=== PATIENT | male | born 1935 | race Caucasian/White ===

== ENCOUNTER → 2016-11-02 | Outpatient (CLI) | payer MEDICARE, OTHER ==
[2016-11-02 16:31] LABS: ABSOLUTE EOSINOPHILS # (AUTO) 0.2 10^3/uL (0.0-0.6); ABSOLUTE LYMPHOCYTES (AUTO) 1.8 10^3/uL (0.5-4.7); ABSOLUTE MONOCYTES (AUTO) 0.5 10^3/uL (0.1-1.4); ABSOLUTE NEUT (AUTO) 4.6 10^3/uL (1.7-8.2); BASOPHILS % (AUTO) 0.6 % (0-2); EOSINOPHILS % (AUTO) 2.5 % (0-6); HEMATOCRIT 43.1 % (37.9-51.0); HEMOGLOBIN 14.6 g/dL (13.5-17.0); HGB HCT DIFFERENCE 0.7; LYMPHOCYTES % (AUTO) 25.3 % (13-45); MEAN CORPUSCULAR HEMOGLOBIN 29.4 pg (27.0-33.4); MEAN CORPUSCULAR HGB CONC 33.7 g/dL (32.0-36.0); MEAN CORPUSCULAR VOLUME 87 fl (80-97); MONOCYTES % (AUTO) 7.4 % (3-13); RED BLOOD COUNT 4.95 10^6/uL (4.35-5.55); RED CELL DISTRIBUTION WIDTH 13.3 % (11.5-14.0); SEGMENTED NEUTROPHILS % (AUTO) 64.2 % (42-78); WHITE BLOOD COUNT 7.2 10^3/uL (4.0-10.5)
[2016-11-02 16:52] LABS: ANION GAP 11 (5-19); BLOOD UREA NITROGEN 28 mg/dL (7-20); CALCIUM 9.8 mg/dL (8.4-10.2); CARBON DIOXIDE 32 mmol/L (22-30); CHLORIDE 98 mmol/L (98-107); CREATININE RESULT 0.84 mg/dL (0.52-1.25); GLUCOSE 99 mg/dL (75-110); POTASSIUM 4.6 mmol/L (3.6-5.0)
--- NOTE | 2016-11-03 11:24 | EKG REPORT ---
SEVERITY:- ABNORMAL ECG - SINUS RHYTHM VENTRICULAR PREMATURE COMPLEX PROBABLE LVH WITH SECONDARY REPOL ABNRM NONSPECIFIC T CHANGES V2-V3 : Confirmed by: Marilyn Martino 03-Nov-2016 11:23:50
== END ==
LOC: OD 15:15
PROVIDERS: ATTEND Orthopaedic Surgery
DX: Z01.810 Encounter for preprocedural cardiovascular examination (principal); Z01.818 Encounter for other preprocedural examination
CPT/HCPCS: 36415; 80048; 85025; 93005; 93010

== ENCOUNTER 2016-11-18 13:13 | Day surgery (SDC) | payer MEDICARE, OTHER ==
[~2016-11-18 13:13] MED LIST: CEFAZOLIN 2 GM/D5W RTU 2 GM/50 ML RTUPB IV ONE; CEFAZOLIN SODIUM 1 GM in DEXTROSE 5%-WATER 50 ML IV PRN; LIDOCAINE 2% INJ-PF (20 MG/ML) 10 ML AMPUL ONE; ONDANSETRON HCL INJ/PF 4 MG/2 ML SDV ONE
[2016-11-18] MEDS ORDERED: BUPIVACAINE HCL 0.5 % INJ/PF 30 ML SDV ONE (13:21)
[2016-11-18] MEDS ORDERED: LIDOCAINE 1% INJ-PF (10 MG/ML) 30 ML SDV ONE (13:21)
[2016-11-18] MEDS ORDERED: MORPHINE SULFATE 10 MG/ML INJ ONE (14:43)
[2016-11-18] MEDS ORDERED: FENTANYL CITRATE INJ/PF 100 MCG/2 ML AMPUL ONE (15:03)
[2016-11-18] MEDS ORDERED: MIDAZOLAM 2 MG/2 ML INJ ONE (15:03)
[2016-11-18] MEDS ORDERED: PROPOFOL INJ 200 MG/20 ML VIAL IV ONE (15:04)
[2016-11-18] MEDS ORDERED: DEXMEDETOMIDINE INJ 80 MCG/20 ML VIAL IV ONE (15:04)
[2016-11-18] MEDS ORDERED: MEPERIDINE HCL/PF INJ 25 MG/1 ML DISP.SYRIN IV PRN (16:22)
[2016-11-18] MEDS ORDERED: DIPHENHYDRAMINE HCL 50 MG/ML VIAL IV PRN (16:22)
[2016-11-18] MEDS ORDERED: PROMETHAZINE HCL INJ 25 MG/1 ML VIAL IV PRN ×2 (16:22)
[2016-11-18] MEDS ORDERED: MORPHINE SULFATE 10 MG/ML INJ IV PRN ×2 (16:22→17:21)
[2016-11-18] MEDS ORDERED: FENTANYL CITRATE INJ/PF 100 MCG/2 ML AMPUL IV PRN ×3 (16:22)
[2016-11-18] MEDS ORDERED: OXYCODONE-ACETAMINOPHEN 5-325 MG TABLET PO PRN ×2 (16:22)
[2016-11-18] MEDS ORDERED: ONDANSETRON HCL INJ/PF 4 MG/2 ML SDV IV PRN (17:21)
[2016-11-18] MEDS ORDERED: HYDROCODONE/ACETAMINOPHEN 5-325 MG TABLET PO PRN (17:21)
--- NOTE | 2016-11-18 17:21 | Operative Report ---
Operative Report DATE OF SURGERY: 11/18/16 PREOPERATIVE DIAGNOSIS: Persistent Carpal Tunnel Syndrome Right Left Wrist POSTOPERATIVE DIAGNOSIS: Same OPERATION: Revision Left Carpal Tunnel Release w/ Placement of Nerve Conduit Protector SURGEON: MELA BALLARD ANESTHESIA: LMAC COMPLICATIONS: None ESTIMATED BLOOD LOSS: <25cc PROCEDURE: Indication for above procedure: 81-year-old male with long-standing history of bilateral carpal tunnel syndrome. He underwent right carpal tunnel release in the past and did well. He then underwent endoscopic left carpal tunnel release on 11/16/16 patient had considerable postoperative discomfort with paresthesias on the median innervated digits. At that point because the patient's significant discomfort we discussed treatment options including operative versus nonoperative intervention. The joint decision was made to proceed with operative exploration. Procedure In Detail: Patient was seen and evaluated in the preoperative holding area. The LEFT upper extremity was initialized and marked. Patient received 2 g Ancef IV for bacterial prophylaxis. Patient was taken back to the operative room where transferred operative table. Patient was then placed under MAC anesthesia. Once adequately anesthetized, a nonsterile tourniquet was placed on the upper extremity. A surgical team debriefing was performed ensuring all instrumentation was available, the surgical procedure was discussed with possible concerns reviewed. Skin was prepped with alcohol a 50:50 10 mL mixture of 1% lidocaine and 0.5% Marcaine plain was injected locally and w/in carpal canal. The upper extremity was prepped with chlorhexidine and alcohol and draped in a sterile fashion. A timeout was done identifying correct patient, procedure and extremity everyone in attendance agree with this and verbalized no concerns.The extremity was then exsanguinated the tourniquet was inflated to 250 mmHg. Patient's previous skin incision was opened and extended proximally and distally with a Barbra extensions and then in line with the radial border of the middle finger from the proximal wrist crease to the distal flexion crease. Blunt dissection was performed proximally identifying the median nerve at its normal-appearing point. It was then followed in a distal direction carefully identifying the palmar cutaneous branch. At the level of the proximal wrist crease palmar fascia was encountered and incised in line with the radial border of the ring finger. The transverse carpal ligament was then identified. There was a distal portion incompletely released causing constriction of the nerve. The nerve remained in continuity a neurolysis was performed. Each branch distally was identified in continuity including the first second and third webspace along with the recurrent motor branch. The nerve was released distally to the level of the superficial palmar arch. The wound was then irrigated with normal saline. Because of the risk of recurrence a Axogen 10 mm nerve protector was placed around the contused portion of the nerve and secured with 7-0 nylon horizontal mattress sutures. The tourniquet was then deflated and compression was placed for 2 minutes. Once compression was released and peripheral vasculature was coagulated with bipolar cautery until the wound was dry. The subcutaneous tissues were closed with interrupted 4-0 Monocryl suture. The proximal wound was closed with interrupted 3-0 nylon suture. The palm incision was closed with a running horizontal mattress 3-0 nylon suture. Wound was then dressed with Xeroform 4 x 4's and a loosely applied volar resting splint. Sponge counts, instrument counts, needle counts counts were correct. Patient was then awoken from anesthesia. Transferred from the operating room table to the operating room stretcher. There was no intraoperative complications patient tolerated procedure well stable to PACU. Postoperative plan: Patient will follow-up in the office as scheduled postoperatively. He will begin digit range of motion.
--- NOTE | 2016-11-18 17:23 | PDOC DISCHARGE SUMMARY ---
Discharge Summary (SDC) - Discharge Final Diagnosis: Persistent Left Carpal Tunnel Syndrome Date of Surgery: 11/18/16 Discharge Date: 11/18/16 Condition: Good Treatment or Instructions: Schedule Follow Up w/ Dr. Quentin Power @ [facility] to be seen in 10-14 days or as scheduled [place]: [place]: [place]: Keep splint clean/dry/intact. Ice and elevate May begin finger range of motion attempting to make full fist. Stool softener of choice when on pain medication. Prescriptions: Hydrocodone/Acetaminophen [[place] 7.5-325 mg Tablet] 1 tab PO Q4 PRN #50 tablet PRN Reason:
[2016-11-18 19:24] VITALS: BP 137/70
== END 2016-11-18 19:20 | disposition home or self-care (01) ==
LOC: OROUT 13:13
PROVIDERS: ATTEND Orthopaedic Surgery
PROC: 01U507Z Supplement Median Nerve with Autologous Tissue Substitute, Open Approach (ICD-10-PCS; principal; 2016-11-18 16:00)
DX: G56.02 Carpal tunnel syndrome, left upper limb (principal); I73.9 Peripheral vascular disease, unspecified; E11.9 Type 2 diabetes mellitus without complications; E78.5 Hyperlipidemia, unspecified; I10 Essential (primary) hypertension; Z79.82 Long term (current) use of aspirin; Z79.899 Other long term (current) drug therapy; Z79.84 Long term (current) use of oral hypoglycemic drugs
CPT/HCPCS: 36415; 84132; 64910; J2250; J3490 ×3; J2270; J2405; J2704; J0690; 1810; J3010

== ENCOUNTER → 2017-01-06 | Outpatient (CLI) | payer MEDICARE, OTHER ==
[2017-01-07 10:29] LABS: ANION GAP 10 (5-19); BLOOD UREA NITROGEN 25 mg/dL (7-20); CALCIUM 10.2 mg/dL (8.4-10.2); CARBON DIOXIDE 35 mmol/L (22-30); CHLORIDE 98 mmol/L (98-107); CREATININE RESULT 0.85 mg/dL (0.52-1.25); Direct HDL 84 mg/dL (>40); GLUCOSE 125 mg/dL (75-110); POTASSIUM 4.5 mmol/L (3.6-5.0); SODIUM 143.1 mmol/L (137-145); TRIGLYCERIDES 143 mg/dL (<150)
[2017-01-07 10:40] LABS: DIRECT LDL 55 mg/dL (<100)
== END ==
LOC: OD 10:29
PROVIDERS: ATTEND Internal Medicine Cardiovascular Disease
DX: E78.2 Mixed hyperlipidemia (principal); Z79.899 Other long term (current) drug therapy
CPT/HCPCS: 36415; 80048; 80061; 82977

== ENCOUNTER → 2017-05-31 | Outpatient (CLI) | payer MEDICARE, OTHER ==
[2017-05-31 12:09] LABS: ANION GAP 13 (5-19); BLOOD UREA NITROGEN 16 mg/dL (7-20); CARBON DIOXIDE 32 mmol/L (22-30); CHLORIDE 97 mmol/L (98-107); CHOLESTEROL 192.66 mg/dL (0-200); CREATININE RESULT 0.81 mg/dL (0.52-1.25); Direct HDL 77 mg/dL (>40); GLUCOSE 101 mg/dL (75-110); MAGNESIUM 1.8 mg/dL (1.6-2.3); POTASSIUM 4.3 mmol/L (3.6-5.0); SODIUM 141.5 mmol/L (137-145); TRIGLYCERIDES 202 mg/dL (<150)
[2017-05-31 12:20] LABS: DIRECT LDL 68 mg/dL (<100)
[2017-05-31 12:23] LABS: VLDL CHOLESTEROL 40.4 mg/dL (10-31)
== END ==
LOC: OD 09:46
PROVIDERS: ATTEND Internal Medicine Cardiovascular Disease
DX: I25.10 Atherosclerotic heart disease of native coronary artery without angina pectoris (principal); R06.02 Shortness of breath; Z79.899 Other long term (current) drug therapy; E78.2 Mixed hyperlipidemia
CPT/HCPCS: 36415; 80048; 80061; 82977; 83735; 83880

== ENCOUNTER → 2017-06-07 | Outpatient (CLI) | payer MEDICARE, OTHER ==
[2017-06-07 14:11] LABS: ABSOLUTE BASOPHILS # (AUTO) 0.1 10^3/uL (0.0-0.2); ABSOLUTE EOSINOPHILS # (AUTO) 0.2 10^3/uL (0.0-0.6); ABSOLUTE LYMPHOCYTES (AUTO) 1.6 10^3/uL (0.5-4.7); ABSOLUTE MONOCYTES (AUTO) 0.5 10^3/uL (0.1-1.4); ABSOLUTE NEUT (AUTO) 5.9 10^3/uL (1.7-8.2); BASOPHILS % (AUTO) 0.6 % (0-2); EOSINOPHILS % (AUTO) 2.7 % (0-6); HEMATOCRIT 42.2 % (37.9-51.0); HEMOGLOBIN 14.4 g/dL (13.5-17.0); LYMPHOCYTES % (AUTO) 19.5 % (13-45); MEAN CORPUSCULAR HEMOGLOBIN 30.6 pg (27.0-33.4); MEAN CORPUSCULAR VOLUME 90 fl (80-97); MONOCYTES % (AUTO) 6.4 % (3-13); RED CELL DISTRIBUTION WIDTH 13.8 % (11.5-14.0); SEGMENTED NEUTROPHILS % (AUTO) 70.8 % (42-78); WHITE BLOOD COUNT 8.3 10^3/uL (4.0-10.5)
== END ==
LOC: OD 13:32
PROVIDERS: ATTEND Specialist
DX: R10.9 Unspecified abdominal pain (principal); K62.5 Hemorrhage of anus and rectum
CPT/HCPCS: 36415; 85025

== ENCOUNTER 2017-06-22 09:00 | Day surgery (SDC) | payer MEDICARE, OTHER ==
--- NOTE | 2017-06-16 12:30 | HISTORY AND PHYSICAL E ---
History and Physical NAME: MADELINE FISH : 1935 AGE: 81Y ADMITTED: 06/22/2017 ROOM: CHIEF COMPLAINT: Rectal bleeding. HISTORY OF PRESENT ILLNESS: The patient referred to us by Dr. Sandy for colon exam. He has remote history of colonoscopy. Followed 2003. SOCIAL HISTORY: He does not smoke and drinks occasional beer. MEDICATIONS: 1. Plavix. 2. Simvastatin. 3. Toprol. 4. Diltiazem. 5. Trilipix. 6. Aspirin. PAST MEDICAL HISTORY: The patient did have colon exam 2003. He has coronary artery disease, cardiac bypass and stent. Hemorrhoid surgery. Cholecystectomy. Right shoulder surgery. PHYSICAL EXAMINATION: VITAL SIGNS: Blood pressure 120/70, pulse 80, respirations 20, temperature is 98. HEAD, EYES, EARS, NOSE AND THROAT: Normal. ABDOMEN: Soft. NEUROLOGIC EXAM: Negative. CONCLUSION: Rectal bleeding. PLAN: Colonoscopy, 06/22/2017. DICTATING PHYSICIAN: JEN RAND M.D. [id number] Y#: [id number] ID: [id number] JOB#: [id number] ACCT: [id number] cc:JEN RAND M.D., LAZARO >
[~2017-06-22 09:00] MED LIST changes: -CEFAZOLIN 2 GM/D5W RTU 2 GM/50 ML RTUPB IV ONE; -CEFAZOLIN SODIUM 1 GM in DEXTROSE 5%-WATER 50 ML IV PRN; +EPINEPHRINE INJ 1 MG/10 ML DISP.SYRIN ONE; +FENTANYL CITRATE INJ/PF 100 MCG/2 ML AMPUL ONE; +FLUMAZENIL INJ 0.5 MG/5 ML VIAL ONE; +GLUCAGON,HUMAN RECOMB 1 MG INJ ONE; +GLYCOPYRROLATE INJ 0.4 MG/2 ML VIAL ONE; -LIDOCAINE 2% INJ-PF (20 MG/ML) 10 ML AMPUL ONE; +LIDOCAINE 2% JELLY 30 ML TUBE ONE; +NALOXONE HCL INJ/PF 0.4 MG/1 ML SDV ONE
[2017-06-22] MEDS: MIDAZOLAM 2 MG/2 ML INJ ONE ×2 (10:48→10:53)
[2017-06-22 11:54] VITALS: BP 131/70
[2017-06-22 11:58] LABS: ABSOLUTE EOSINOPHILS # (AUTO) 0.1 10^3/uL (0.0-0.6); ABSOLUTE LYMPHOCYTES (AUTO) 1.5 10^3/uL (0.5-4.7); ABSOLUTE MONOCYTES (AUTO) 0.4 10^3/uL (0.1-1.4); ABSOLUTE NEUT (AUTO) 4.3 10^3/uL (1.7-8.2); BASOPHILS % (AUTO) 0.6 % (0-2); EOSINOPHILS % (AUTO) 1.3 % (0-6); HEMATOCRIT 42.5 % (37.9-51.0); HEMOGLOBIN 14.8 g/dL (13.5-17.0); HGB HCT DIFFERENCE 1.9; LYMPHOCYTES % (AUTO) 24.2 % (13-45); MEAN CORPUSCULAR HEMOGLOBIN 30.7 pg (27.0-33.4); MEAN CORPUSCULAR HGB CONC 34.8 g/dL (32.0-36.0); MEAN CORPUSCULAR VOLUME 88 fl (80-97); MONOCYTES % (AUTO) 7.1 % (3-13); RED BLOOD COUNT 4.82 10^6/uL (4.35-5.55); RED CELL DISTRIBUTION WIDTH 13.9 % (11.5-14.0); SEGMENTED NEUTROPHILS % (AUTO) 66.8 % (42-78); WHITE BLOOD COUNT 6.4 10^3/uL (4.0-10.5)
[2017-06-22 12:17] LABS: ALANINE AMINOTRANSFERASE 44 U/L (21-72); ALBUMIN 4.1 g/dL (3.5-5.0); ALKALINE PHOSPHATASE 58 U/L (38-126); ANION GAP 10 (5-19); ASPARTATE AMINO TRANSFERASE 37 U/L (17-59); BILIRUBIN,DIRECT 0.4 mg/dL (0.0-0.4); BILIRUBIN,TOTAL 1.1 mg/dL (0.2-1.3); BLOOD UREA NITROGEN 19 mg/dL (7-20); CALCIUM 9.5 mg/dL (8.4-10.2); CARBON DIOXIDE 32 mmol/L (22-30); CHLORIDE 95 mmol/L (98-107); CREATININE RESULT 0.81 mg/dL (0.52-1.25); GLUCOSE 178 mg/dL (75-110); POTASSIUM 3.6 mmol/L (3.6-5.0); SODIUM 136.7 mmol/L (137-145); TOTAL PROTEIN 6.6 g/dL (6.3-8.2)
[2017-06-22 12:48] LABS: CARCINOEMBRYONIC ANTIGEN 3.8 ng/mL (<3.0)
--- NOTE | 2017-06-23 12:00 | DISCHARGE SUMMARY E ---
Discharge Summary NAME: MADELINE FISH : 1935 AGE: 81Y ADMITTED: 06/22/2017 DISCHARGED: 06/22/2017 HISTORY: The patient is an 81-year-old male who presented with rectal bleeding. Today's colonoscopy shows sessile polyp, cecum. The patient has a bypass and stent. He did have a history of hemorrhoid surgery, cholecystectomy, and right shoulder surgery. DISCHARGE PLAN: 1. Soft diet. 2. Awaiting biopsy results. 3. CEA, CBC, chem profile. 4. Consideration for referral to tertiary center, [facility] or [facility], regarding sessile polyp in the cecum. DICTATING PHYSICIAN: JEN RAND M.D. [id number] PHY#: [id number] ID: [id number] JOB#: [id number] ACCT: [id number] cc:TARAS CONCEPCION M.D., MAHMOUD M.D. >
--- NOTE | 2017-06-23 12:03 | OPERATIVE REPORT E ---
Operative Report NAME: MADELINE FISH : 1935 AGE: 81Y DATE OF SURGERY: 06/22/2017 ROOM: PREOPERATIVE DIAGNOSIS: Rectal bleeding. POSTOPERATIVE DIAGNOSES: 1. External hemorrhoids. 2. Sessile polyp in the cecum, 2 to 3 cm wide, 4 mm width, and 2 to 3 cm long, sessile polyp in the ileocecal valve area. OPERATION: Colonoscopy. SURGEON: JEN RAND M.D. ANESTHESIA: Versed 3 mg and Fentanyl 50 mcg. PROCEDURE: Rectal exam - External hemorrhoids. Sigmoid and descending colon diminutive polyps, small to biopsy. Descending colon normal. Transverse colon normal. Ascending colon normal. Cecum shows sessile polyp in the ileocecal valve area, 3 cm long, 4 mm wide, difficult and risky to resect it by the scope. The scope was withdrawn from the cecum as mentioned. Sessile polyp. Ascending normal. Transverse colon normal. Descending colon diminutive polyps. External hemorrhoids. PLAN: 1. Awaiting biopsy. We will refer the patient to a tertiary center for further evaluation for sessile polyp in the cecum most likely adenoma, pending biopsy. 2. Baseline CBC and CEA. 3. Soft diet today. 4. Hold aspirin for 3 days. DICTATING PHYSICIAN: JEN RAND M.D. [id number] Y#: [id number] ID: [id number] JOB#: [id number] ACCT: [id number] cc:TARAS CONCEPCION M.D., MAHMOUD M.D. >
== END 2017-06-22 12:18 | disposition home or self-care (01) ==
LOC: END 09:00
PROVIDERS: ATTEND Specialist
PROC: 0DBH8ZX Excision of Cecum, Via Natural or Artificial Opening Endoscopic, Diagnostic (ICD-10-PCS; principal; 2017-06-22 10:00)
DX: D12.0 Benign neoplasm of cecum (principal); K64.4 Residual hemorrhoidal skin tags; K62.5 Hemorrhage of anus and rectum; R97.0 Elevated carcinoembryonic antigen [CEA]; I25.10 Atherosclerotic heart disease of native coronary artery without angina pectoris; Z79.02 Long term (current) use of antithrombotics/antiplatelets; Z79.82 Long term (current) use of aspirin; Z79.899 Other long term (current) drug therapy
CPT/HCPCS: 45380; 36415; 82962; 82378; 85025; 80053; 88305 ×2; J2250; J3010; J0171; J1610; J2310; J2405; J3490

== ENCOUNTER → 2017-09-21 | Outpatient (CLI) | payer MEDICARE, OTHER ==
[2017-09-21 12:14] LABS: ABSOLUTE BASOPHILS # (AUTO) 0.1 10^3/uL (0.0-0.2); ABSOLUTE EOSINOPHILS # (AUTO) 0.2 10^3/uL (0.0-0.6); ABSOLUTE LYMPHOCYTES (AUTO) 1.8 10^3/uL (0.5-4.7); ABSOLUTE MONOCYTES (AUTO) 0.7 10^3/uL (0.1-1.4); ABSOLUTE NEUT (AUTO) 5.5 10^3/uL (1.7-8.2); BASOPHILS % (AUTO) 0.6 % (0-2); EOSINOPHILS % (AUTO) 1.9 % (0-6); HEMATOCRIT 42.5 % (37.9-51.0); HEMOGLOBIN 14.8 g/dL (13.5-17.0); HGB HCT DIFFERENCE 1.9; LYMPHOCYTES % (AUTO) 22.3 % (13-45); MEAN CORPUSCULAR HEMOGLOBIN 30.8 pg (27.0-33.4); MEAN CORPUSCULAR HGB CONC 34.8 g/dL (32.0-36.0); MEAN CORPUSCULAR VOLUME 89 fl (80-97); MONOCYTES % (AUTO) 8.2 % (3-13); RED CELL DISTRIBUTION WIDTH 13.5 % (11.5-14.0); WHITE BLOOD COUNT 8.3 10^3/uL (4.0-10.5)
[2017-09-21 12:56] LABS: ERYTHROCYTE SEDIMENTATION RATE 16 mm/hr (0-20)
== END ==
LOC: OD 11:37
PROVIDERS: ATTEND Orthopaedic Surgery
DX: M25.50 Pain in unspecified joint (principal)
CPT/HCPCS: 36415; 85025; 85652; 86140

== ENCOUNTER → 2017-10-24 | Outpatient (CLI) | payer MEDICARE, OTHER ==
[2017-10-24 19:01] LABS: HEMATOCRIT 43.3 % (37.9-51.0); MEAN CORPUSCULAR HEMOGLOBIN 29.8 pg (27.0-33.4); MEAN CORPUSCULAR HGB CONC 34.7 g/dL (32.0-36.0); MEAN CORPUSCULAR VOLUME 86 fl (80-97); PLATELET COUNT 188 10^3/uL (150-450); RED BLOOD COUNT 5.05 10^6/uL (4.35-5.55); RED CELL DISTRIBUTION WIDTH 12.8 % (11.5-14.0); WHITE BLOOD COUNT 7.8 10^3/uL (4.0-10.5)
[2017-10-24 19:04] LABS: INTERNATIONAL RATION (INR) 0.88; PROTHROMBIN TIME 12.6 SEC (11.4-15.4)
[2017-10-24 19:05] LABS: PARTIAL THROMBOPLASTIN TIME 31.3 SEC (23.5-35.8)
[2017-10-24 19:26] LABS: ANION GAP 10 (5-19); BLOOD UREA NITROGEN 20 mg/dL (7-20); CALCIUM 10.1 mg/dL (8.4-10.2); CARBON DIOXIDE 31 mmol/L (22-30); CHLORIDE 101 mmol/L (98-107); GLUCOSE 87 mg/dL (75-110); SODIUM 141.9 mmol/L (137-145)
== END ==
LOC: OD 17:52
PROVIDERS: ATTEND Internal Medicine Cardiovascular Disease
DX: Z01.810 Encounter for preprocedural cardiovascular examination (principal); R07.9 Chest pain, unspecified; Z79.01 Long term (current) use of anticoagulants; R07.89 Other chest pain
CPT/HCPCS: 36415; 80048; 85027; 85610; 85730

== ENCOUNTER → 2017-10-30 | Outpatient (CLI) | payer MEDICARE, OTHER ==
--- NOTE | 2017-10-30 10:50 | WOMENS IMAGING REPORT ---
EXAM DESCRIPTION: BONE DENSITY HIP/SPINE COMPLETED DATE/TIME: 10/30/2017 9:21 am REASON FOR STUDY: STRESS FRACTURE; M84.30XA M84.30XA STRESS FRACTURE, UNSPECIFIED SITE, INIT ENCNTR FOR M81.0 AGE-RELATED OSTEOPOROSIS W/O CURRENT PATHOLOGICAL FRAC COMPARISON: None. TECHNIQUE: Dual-Energy X-ray Absorptiometry (DEXA) of the AP Spine and Hip. LIMITATIONS: None. FINDINGS: LUMBAR SPINE: The bone mineral density (BMD) measured from L1-L4 in the AP projection correlates with a T-score of 1.5, which is normal as defined by the World Health Organization. HIP: The bone mineral density (BMD) measured in the left hip correlates with a T-score of 0.3, which is no rmal as defined by the World Health Organization. IMPRESSION: 1. LUMBAR SPINE: NORMAL. 2. HIP: NORMAL. COMMENT: The World Health Organization defines low BMD as follows: T-score: Normal: Greater than -1.0 Osteopenia: Between -1.0 and -2.5 Osteoporosis: Less than -2.5 without fractures Established osteoporosis: Less than -2.5 with fractures In general, you may wish to consider: Diagnosis Treatment Follow-up DEXA Normal BMD Prevention 2-3 years Osteopenia Prevention/Therapy 1-2 years Osteoporosis Therapy Yearly TECHNICAL DOCUMENTATION: JOB ID: [id number]- All Rights Reserved
== END ==
LOC: WI 09:07
PROVIDERS: ATTEND Physician Assistant Surgical
DX: M84.30XA Stress fracture, unspecified site, initial encounter for fracture (principal); M81.0 Age-related osteoporosis without current pathological fracture
CPT/HCPCS: 77080

== ENCOUNTER → 2017-10-30 | Outpatient (CLI) | payer MEDICARE, OTHER ==
[2017-10-30 10:49] LABS: ABSOLUTE BASOPHILS # (AUTO) 0.1 10^3/uL (0.0-0.2); ABSOLUTE EOSINOPHILS # (AUTO) 0.2 10^3/uL (0.0-0.6); ABSOLUTE LYMPHOCYTES (AUTO) 1.9 10^3/uL (0.5-4.7); ABSOLUTE MONOCYTES (AUTO) 0.5 10^3/uL (0.1-1.4); ABSOLUTE NEUT (AUTO) 5.5 10^3/uL (1.7-8.2); BASOPHILS % (AUTO) 0.7 % (0-2); EOSINOPHILS % (AUTO) 1.9 % (0-6); HEMATOCRIT 43.3 % (37.9-51.0); HEMOGLOBIN 14.8 g/dL (13.5-17.0); LYMPHOCYTES % (AUTO) 23.1 % (13-45); MEAN CORPUSCULAR HEMOGLOBIN 29.4 pg (27.0-33.4); MEAN CORPUSCULAR HGB CONC 34.2 g/dL (32.0-36.0); MEAN CORPUSCULAR VOLUME 86 fl (80-97); MONOCYTES % (AUTO) 6.5 % (3-13); PLATELET COUNT 157 10^3/uL (150-450); RED BLOOD COUNT 5.04 10^6/uL (4.35-5.55); RED CELL DISTRIBUTION WIDTH 13.2 % (11.5-14.0); SEGMENTED NEUTROPHILS % (AUTO) 67.8 % (42-78); TOTAL CELLS COUNTED % (AUTO) 100 %
[2017-10-30 11:07] LABS: ALANINE AMINOTRANSFERASE 35 U/L (21-72); ALBUMIN 4.7 g/dL (3.5-5.0); ALKALINE PHOSPHATASE 123 U/L (38-126); ANION GAP 8 (5-19); ASPARTATE AMINO TRANSFERASE 32 U/L (17-59); BILIRUBIN,DIRECT 0.3 mg/dL (0.0-0.4); BILIRUBIN,TOTAL 0.6 mg/dL (0.2-1.3); BLOOD UREA NITROGEN 18 mg/dL (7-20); CALCIUM 10.4 mg/dL (8.4-10.2); CARBON DIOXIDE 34 mmol/L (22-30); CHLORIDE 100 mmol/L (98-107); CHOLESTEROL 137.27 mg/dL (0-200); GLUCOSE 98 mg/dL (75-110); POTASSIUM 4.5 mmol/L (3.6-5.0); SODIUM 142.4 mmol/L (137-145); TOTAL PROTEIN 7.2 g/dL (6.3-8.2); TRIGLYCERIDES 234 mg/dL (<150)
[2017-10-30 11:13] LABS: ALANINE AMINOTRANSFERASE 33 U/L (21-72); ALBUMIN 4.7 g/dL (3.5-5.0); ALKALINE PHOSPHATASE 129 U/L (38-126); ANION GAP 10 (5-19); ASPARTATE AMINO TRANSFERASE 32 U/L (17-59); BILIRUBIN,DIRECT 0.3 mg/dL (0.0-0.4); BILIRUBIN,TOTAL 0.6 mg/dL (0.2-1.3); BLOOD UREA NITROGEN 18 mg/dL (7-20); CALCIUM 10.2 mg/dL (8.4-10.2); CARBON DIOXIDE 34 mmol/L (22-30); CHLORIDE 99 mmol/L (98-107); GLUCOSE 97 mg/dL (75-110); POTASSIUM 4.1 mmol/L (3.6-5.0); SODIUM 142.9 mmol/L (137-145); TOTAL PROTEIN 7.3 g/dL (6.3-8.2)
[2017-10-30 11:18] LABS: DIRECT LDL 43 mg/dL (<100)
[2017-10-30 11:20] LABS: VLDL CHOLESTEROL 46.8 mg/dL (10-31)
== END ==
LOC: OD 10:12
PROVIDERS: ATTEND Physician Assistant Surgical
DX: E78.2 Mixed hyperlipidemia (principal); I10 Essential (primary) hypertension; I48.92 Unspecified atrial flutter; Z79.899 Other long term (current) drug therapy; M84.30XA Stress fracture, unspecified site, initial encounter for fracture
CPT/HCPCS: 36415; 80048; 80053; 80061; 80076; 82308; 83970; 85025

== ENCOUNTER → 2018-07-17 | Outpatient (CLI) | payer MEDICARE, OTHER ==
[2018-07-17 10:40] LABS: HEMATOCRIT 42.4 % (37.9-51.0); HEMOGLOBIN 15.1 g/dL (13.5-17.0); MEAN CORPUSCULAR HEMOGLOBIN 30.4 pg (27.0-33.4); MEAN CORPUSCULAR HGB CONC 35.6 g/dL (32.0-36.0); MEAN CORPUSCULAR VOLUME 86 fl (80-97); PLATELET COUNT 155 10^3/uL (150-450); RED BLOOD COUNT 4.95 10^6/uL (4.35-5.55); RED CELL DISTRIBUTION WIDTH 13.9 % (11.5-14.0); WHITE BLOOD COUNT 7.6 10^3/uL (4.0-10.5)
[2018-07-17 10:49] LABS: APPEARANCE,URINE CLEAR; BILIRUBIN,URINE NEGATIVE (NEGATIVE); COLOR,URINE YELLOW; GLUCOSE, URINE 50 mg/dL (NEGATIVE); KETONES,URINE NEGATIVE (NEGATIVE); LEUKOCYTE ESTERASE,URINE NEGATIVE (NEGATIVE); NITRITE,URINE NEGATIVE (NEGATIVE); PROTEIN,URINE NEGATIVE (NEGATIVE); URINE SPECIFIC GRAVITY 1.023
[2018-07-17 10:51] LABS: INTERNATIONAL RATION (INR) 1.26; PROTHROMBIN TIME 16.4 SEC (11.4-15.4)
[2018-07-17 11:04] LABS: ALANINE AMINOTRANSFERASE 30 U/L (21-72); ALBUMIN 4.6 g/dL (3.5-5.0); ALKALINE PHOSPHATASE 61 U/L (38-126); ANION GAP 13 (5-19); ASPARTATE AMINO TRANSFERASE 34 U/L (17-59); BILIRUBIN,DIRECT 0.5 mg/dL (0.0-0.4); BILIRUBIN,TOTAL 1.2 mg/dL (0.2-1.3); BLOOD UREA NITROGEN 26 mg/dL (7-20); CALCIUM 9.7 mg/dL (8.4-10.2); CARBON DIOXIDE 35 mmol/L (22-30); CHLORIDE 96 mmol/L (98-107); CHOLESTEROL 140.74 mg/dL (0-200); GLUCOSE 130 mg/dL (75-110); POTASSIUM 4.1 mmol/L (3.6-5.0); SODIUM 143.8 mmol/L (137-145); TOTAL PROTEIN 7.7 g/dL (6.3-8.2); TRIGLYCERIDES 187 mg/dL (<150)
[2018-07-17 11:15] LABS: DIRECT LDL 37 mg/dL (<100)
[2018-07-17 11:19] LABS: VLDL CHOLESTEROL 37.4 mg/dL (10-31)
== END ==
LOC: OD 09:30
PROVIDERS: ATTEND Internal Medicine Cardiovascular Disease
DX: E78.2 Mixed hyperlipidemia (principal); E83.42 Hypomagnesemia; I48.92 Unspecified atrial flutter; Z79.01 Long term (current) use of anticoagulants
CPT/HCPCS: 36415; 80048; 80061; 80076; 81001; 82272; 83735; 85027; 85610; 86141

== ENCOUNTER → 2018-09-15 | Outpatient (CLI) | payer MEDICARE, OTHER ==
[2018-09-15 10:28] LABS: ANION GAP 8 (5-19); BLOOD UREA NITROGEN 20 mg/dL (7-20); CALCIUM 9.2 mg/dL (8.4-10.2); CARBON DIOXIDE 32 mmol/L (22-30); CHLORIDE 101 mmol/L (98-107); GLUCOSE 138 mg/dL (75-110); POTASSIUM 4.5 mmol/L (3.6-5.0)
== END ==
LOC: OD 08:55
PROVIDERS: ATTEND Internal Medicine Cardiovascular Disease
DX: I11.0 Hypertensive heart disease with heart failure (principal); I50.22 Chronic systolic (congestive) heart failure; R06.02 Shortness of breath; Z79.899 Other long term (current) drug therapy
CPT/HCPCS: 36415; 80048; 83735; 83880

== ENCOUNTER → 2018-10-30 | Outpatient (CLI) | payer MEDICARE, OTHER ==
[2018-10-30 11:43] LABS: ALANINE AMINOTRANSFERASE 26 U/L (21-72); ALBUMIN 4.6 g/dL (3.5-5.0); ALKALINE PHOSPHATASE 60 U/L (38-126); ANION GAP 10 (5-19); ASPARTATE AMINO TRANSFERASE 29 U/L (17-59); BILIRUBIN,DIRECT 0.3 mg/dL (0.0-0.4); BILIRUBIN,TOTAL 0.8 mg/dL (0.2-1.3); BLOOD UREA NITROGEN 21 mg/dL (7-20); CALCIUM 9.4 mg/dL (8.4-10.2); CARBON DIOXIDE 28 mmol/L (22-30); CHLORIDE 103 mmol/L (98-107); CHOLESTEROL 127.91 mg/dL (0-200); GLUCOSE 118 mg/dL (75-110); POTASSIUM 4.5 mmol/L (3.6-5.0); SODIUM 140.8 mmol/L (137-145); TOTAL PROTEIN 6.9 g/dL (6.3-8.2); TRIGLYCERIDES 156 mg/dL (<150)
[2018-10-30 11:53] LABS: DIRECT LDL 47 mg/dL (<100)
[2018-10-30 12:00] LABS: VLDL CHOLESTEROL 31.2 mg/dL (10-31)
== END ==
LOC: OD 10:43
PROVIDERS: ATTEND Physician Assistant
DX: I11.0 Hypertensive heart disease with heart failure (principal); I50.22 Chronic systolic (congestive) heart failure; E78.2 Mixed hyperlipidemia; Z79.899 Other long term (current) drug therapy
CPT/HCPCS: 36415; 80048; 80061; 80076; 83880

== ENCOUNTER → 2018-12-08 | Outpatient (CLI) | payer MEDICARE, OTHER ==
[2018-12-09 09:26] LABS: ANION GAP 10 (5-19); BLOOD UREA NITROGEN 19 mg/dL (7-20); CALCIUM 9.4 mg/dL (8.4-10.2); CARBON DIOXIDE 28 mmol/L (22-30); CHLORIDE 98 mmol/L (98-107); GLUCOSE 119 mg/dL (75-110); POTASSIUM 4.5 mmol/L (3.6-5.0); SODIUM 136.1 mmol/L (137-145)
== END ==
LOC: OD 08:38
PROVIDERS: ATTEND Physician Assistant
DX: I50.22 Chronic systolic (congestive) heart failure (principal); R06.02 Shortness of breath
CPT/HCPCS: 36415; 80048; 83880

== ENCOUNTER → 2019-01-16 | Outpatient (CLI) | payer MEDICARE, OTHER ==
[2019-01-16 09:02] LABS: BLOOD UREA NITROGEN 18 mg/dL (7-20); CALCIUM 9.8 mg/dL (8.4-10.2); CARBON DIOXIDE 30 mmol/L (22-30); GLUCOSE 161 mg/dL (75-110); POTASSIUM 4.5 mmol/L (3.6-5.0); SODIUM 137.4 mmol/L (137-145)
[2019-01-16 09:11] LABS: ANION GAP 6 (5-19); CHLORIDE 101 mmol/L (98-107)
== END ==
LOC: OD 07:35
PROVIDERS: ATTEND Internal Medicine Cardiovascular Disease
DX: I50.22 Chronic systolic (congestive) heart failure (principal); R06.02 Shortness of breath
CPT/HCPCS: 36415; 80048; 83880

== ENCOUNTER 2019-01-29 10:16 | Inpatient (IN) | payer MEDICARE, OTHER ==
[2019-01-29 10:37] LABS: ABSOLUTE EOSINOPHILS # (AUTO) 0.8 10^3/uL (0.0-0.6); ABSOLUTE LYMPHOCYTES (AUTO) 2.8 10^3/uL (0.5-4.7); ABSOLUTE MONOCYTES (AUTO) 0.8 10^3/uL (0.1-1.4); ABSOLUTE NEUT (AUTO) 7.4 10^3/uL (1.7-8.2); BASOPHILS % (AUTO) 0.3 % (0-2); EOSINOPHILS % (AUTO) 6.8 % (0-6); HEMATOCRIT 44.7 % (37.9-51.0); HEMOGLOBIN 15.1 g/dL (13.5-17.0); LYMPHOCYTES % (AUTO) 23.5 % (13-45); MEAN CORPUSCULAR HEMOGLOBIN 29.7 pg (27.0-33.4); MEAN CORPUSCULAR HGB CONC 33.7 g/dL (32.0-36.0); MEAN CORPUSCULAR VOLUME 88 fl (80-97); MONOCYTES % (AUTO) 6.8 % (3-13); PLATELET COUNT 158 10^3/uL (150-450); RED BLOOD COUNT 5.06 10^6/uL (4.35-5.55); RED CELL DISTRIBUTION WIDTH 13.4 % (11.5-14.0); SEGMENTED NEUTROPHILS % (AUTO) 62.6 % (42-78); TOTAL CELLS COUNTED % (AUTO) 100 %; WHITE BLOOD COUNT 11.8 10^3/uL (4.0-10.5)
[2019-01-29 11:01] LABS: ALANINE AMINOTRANSFERASE 22 U/L (21-72); ALKALINE PHOSPHATASE 71 U/L (38-126); ANION GAP 13 (5-19); ASPARTATE AMINO TRANSFERASE 17 U/L (17-59); BILIRUBIN,DIRECT 0.3 mg/dL (0.0-0.4); BILIRUBIN,TOTAL 0.8 mg/dL (0.2-1.3); BLOOD UREA NITROGEN 22 mg/dL (7-20); CALCIUM 9.2 mg/dL (8.4-10.2); CARBON DIOXIDE 21 mmol/L (22-30); CHLORIDE 102 mmol/L (98-107); GLUCOSE 142 mg/dL (75-110); POTASSIUM 4.6 mmol/L (3.6-5.0); SODIUM 136.4 mmol/L (137-145); TOTAL PROTEIN 6.8 g/dL (6.3-8.2)
--- NOTE | 2019-01-29 11:30 | ER Document Report ---
ED GI/ - General Chief Complaint: Nausea/Vomiting/Diarrhea Stated Complaint: VOMITING/DIARRHEA Time Seen by Provider: 01/29/19 10:41 Notes: 83-year-old male to the emergency department chief complaint of abdominal pain, nausea, vomiting and diarrhea with blood in stool. Symptoms began several days ago. No recent antibiotic use. Denies any other major symptoms at this time. TRAVEL OUTSIDE OF THE [place] IN LAST 30 DAYS: No - HPI Patient complains to provider of: Abdominal pain, Diarrhea, Vomiting Onset: Yesterday Timing/Duration: Gradual, Worse Quality of pain: Achy Severity at maximum: Moderate Severity in ED: Moderate Pain Level: 2 Context: denies: Bad food, Out of the country travel Location: [facility] Associated symptoms: Blood in stool, Diarrhea - Related Data Allergies/Adverse Reactions: phenytoin sodium [From Dilantin] Allergy (Mild, Verified 06/22/17 09:24) itching, rash phenytoin sodium extended [From Dilantin] Allergy (Mild, Verified 06/22/17 09:24) itching, rash quinidine [Quinidine] Allergy (Mild, Verified 06/22/17 09:24) itching, rash acetaminophen [From Percocet] Adverse Reaction (Mild, Verified 06/22/17 09:24) RASH oxycodone [From Percocet] Adverse Reaction (Mild, Verified 06/22/17 09:24) RASH Past Medical History - General Information source: Patient, Relative - Social History Smoking Status: Never Smoker Chew tobacco use (# tins/day): No Frequency of alcohol use: None Drug Abuse: None Lives with: Spouse/Significant other Family History: Reviewed & Not Pertinent Patient has suicidal ideation: No Patient has homicidal ideation: No - Past Medical History Cardiac Medical History: 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, Hx Hypertension Denies: Hx Coronary Artery Disease Pulmonary Medical History: Reports: Hx Pneumonia Denies: Hx Asthma, Hx Bronchitis, Hx COPD Neurological Medical History: Denies: Hx Cerebrovascular Accident, Hx Seizures Endocrine Medical History: Reports: Hx Diabetes Mellitus Type 2 Renal/ Medical History: Denies: Hx Peritoneal Dialysis GI Medical History: Denies: Hx Hepatitis, Hx Hiatal Hernia, Hx Ulcer Musculoskeletal Medical History: Reports Hx Arthritis Infectious Medical History: Denies: Hx Hepatitis Past Surgical History: Reports: Hx Cardiac Surgery - Pacemaker/defibrillator, Hx Open Heart Surgery - BYPASS 1989,STENT 3 YEARS AGO. Denies: Hx Pacemaker - Immunizations Hx Diphtheria, Pertussis, Tetanus Vaccination: Yes Review of Systems - Review of Systems Notes: Constitutional: denies: Chills, Diaphoresis, Fever, Malaise, Weakness EENT: denies: Eye discharge, Blurred vision, Tearing, Double vision, Nose conge stion, Nose discharge, Throat swelling, Mouth pain Cardiovascular: denies: Palpitations, Heart racing, Orthopnea, Dyspnea, Chest pain Respiratory: denies: Cough, Hurts to breathe, Wheezing, Shortness of breath Gastrointestinal: + Nausea, vomiting, abdominal pain, diarrhea, blood in the stool Genitourinary: denies: Burning, Dysuria, Discharge, Frequency, Flank pain, Hematuria Musculoskeletal: denies: Joint pain, Joint swelling, Muscle pain, Muscle stiffness, back pain Hematologic/Lymphatic: denies: Anemia, Easy bleeding, Easy bruising, Blood clots Neurological/Psychological: denies: Confusion, Dementia, Depression, Loss of consciousness Skin: No lesions, no masses, no skin breakdown, no abscesses Physical Exam - Vital signs Vitals: Temp Pulse Resp BP Pulse Ox 97.7 F 63 18 91/51 L 96 01/29/19 10:26 01/29/19 10:26 01/29/19 10:26 01/29/19 10:26 01/29/19 10:26 Interpretation: Hypotensive - General General appearance: Appears well, Alert - HEENT Head: Normocephalic, Atraumatic Eyes: Normal Pupils: PERRL - Respiratory Respiratory status: No respiratory distress Chest status: Nontender Breath sounds: Normal Chest palpation: Normal - Cardiovascular Rhythm: Regular Heart sounds: Normal auscultation Murmur: No - Abdominal Inspection: Normal Distension: No distension Bowel sounds: Normal Tenderness: Tender - Tenderness to palpation left lower quadrant Organomegaly: No organomegaly - Back Back: Normal, Nontender - Extremities General upper extremity: Normal inspection, Nontender, Normal color, Normal ROM, Normal temperature General lower extremity: Normal inspection, Nontender, Normal color, Normal ROM, Normal temperature, Normal weight bearing. No: Elier's sign - Neurological Neuro grossly intact: Yes Cognition: Normal Orientation: AAOx4 [place] Coma Scale Eye Opening: Spontaneous [place] Coma Scale Verbal: Oriented [place] Coma Scale Motor: Obeys Commands [place] Coma Scale Total: 15 Speech: Normal Motor strength normal: LUE, RUE, LLE, RLE Sensory: Normal - Psychological Associated symptoms: Normal affect, Normal mood - Skin Skin Temperature: Warm Skin Moisture: Dry Skin Color: Normal Course - Re-evaluation Re-evalutation: 01/29/19 14:25 Patient has a slightly elevated WBC count with blood positive in stool with diarrhea. Some fluid in the colon suggestive of enteritis. C. difficile has been added. Patient's blood pressures remained low throughout the course of the ER. Blood cultures and lactic added. I will place patient on some antibiotics currently. Will consult with hospitalist for admission at this time. Abdomen/Pelvis CT 01/29/19 11:29 IMPRESSION: 1. There is some fluid in the colon. Correlate for enteritis. 2. Limited ground-glass infiltrate in the lower lobes. Nonspecific finding. May indicate chronic interstitial changes, interstitial edema, or atypical infectious/ inflammatory process. 01/29/19 15:24 Laboratory 01/29/19 01/29/19 01/29/19 09:55 09:55 09:55 WBC 11.8 H RBC 5.06 Hgb 15.1 Hct 44.7 MCV 88 MCH 29.7 MCHC 33.7 RDW 13.4 Plt Count 158 Seg Neutrophils % 62.6 Lymphocytes % 23.5 Monocytes % 6.8 Eosinophils % 6.8 H Basophils % 0.3 Absolute Neutrophils 7.4 Absolute Lymphocytes 2.8 Absolute Monocytes 0.8 Absolute Eosinophils 0.8 H Absolute Basophils 0.0 PT 16.9 H INR 1.31 APTT 35.4 Sodium 136.4 L Potassium 4.6 Chloride 102 Carbon Dioxide 21 L Anion Gap 13 BUN 22 H Creatinine 1.10 Est GFR ( Amer) > 60 Est GFR (Non-Af Amer) > 60 Glucose 142 H Calcium 9.2 Total Bilirubin 0.8 Direct Bilirubin 0.3 Neonat Total Bilirubin Not Reportable Neonat Direct Bilirubin Not Reportable Neonat Indirect Bili Not Reportable AST 17 ALT 22 Alkaline Phosphatase 71 Total Protein 6.8 Albumin 4.0 Urine Color Urine Appearance Urine pH Ur Specific [place] Urine Protein Urine Glucose (UA) Urine Ketones Urine Blood Urine Nitrite Urine Bilirubin Urine Urobilinogen Ur Leukocyte Esterase Urine WBC (Auto) Urine RBC (Auto) U Hyaline Cast (Auto) Squamous Epi Cells Auto Urine Mucus (Auto) Urine Ascorbic Acid Stool Occult Blood POC Stool Occult Blood Stool for White Cells 01/29/19 01/29/19 01/29/19 11:28 11:35 11:35 WBC RBC Hgb Hct MCV MCH MCHC RDW Plt Count Seg Neutrophils % Lymphocytes % Monocytes % Eosinophils % Basophils % Absolute Neutrophils Absolute Lymphocytes Absolute Monocytes Absolute Eosinophils Absolute Basophils PT INR APTT Sodium Potassium Chloride Carbon Dioxide Anion Gap BUN Creatinine Est GFR ( Amer) Est GFR (Non-Af Amer) Glucose Calcium Total Bilirubin Direct Bilirubin Neonat Total Bilirubin Neonat Direct Bilirubin Neonat Indirect Bili AST ALT Alkaline Phosphatase Total Protein Albumin Urine Color Urine Appearance Urine pH Ur Specific [place] Urine Protein Urine Glucose (UA) Urine Ketones Urine Blood Urine Nitrite Urine Bilirubin Urine Urobilinogen Ur Leukocyte Esterase Urine WBC (Auto) Urine RBC (Auto) U Hyaline Cast (Auto) Squamous Epi Cells Auto Urine Mucus (Auto) Urine Ascorbic Acid Stool Occult Blood POSITIVE POC Stool Occult Blood POSITIVE Stool for White Cells FEW H 01/29/19 11:35 WBC RBC Hgb Hct MCV MCH MCHC RDW Plt Count Seg Neutrophils % Lymphocytes % Monocytes % Eosinophils % Basophils % Absolute Neutrophils Absolute Lymphocytes Absolute Monocytes Absolute Eosinophils Absolute Basophils PT INR APTT Sodium Potassium Chloride Carbon Dioxide Anion Gap BUN Creatinine Est GFR ( Amer) Est GFR (Non-Af Amer) Glucose Calcium Total Bilirubin Direct Bilirubin Neonat Total Bilirubin Neonat Direct Bilirubin Neonat Indirect Bili AST ALT Alkaline Phosphatase Total Protein Albumin Urine Color HOWARD Urine Appearance SLIGHTLY-CLOUDY Urine pH 5.0 Ur Specific [place] 1.023 Urine Protein NEGATIVE Urine Glucose (UA) NEGATIVE Urine Ketones TRACE H Urine Blood NEGATIVE Urine Nitrite NEGATIVE Urine Bilirubin NEGATIVE Urine Urobilinogen NEGATIVE Ur Leukocyte Esterase NEGATIVE Urine WBC (Auto) 4 Urine RBC (Auto) 0 U Hyaline Cast (Auto) 15 Squamous Epi Cells Auto <1 Urine Mucus (Auto) OCC Urine Ascorbic Acid NEGATIVE Stool Occult Blood POC Stool Occult Blood Stool for White Cells - Vital Signs Vital signs: Temp Pulse Resp BP Pulse Ox 97.3 F 63 14 112/66 97 01/29/19 14:19 01/29/19 10:26 01/29/19 13:08 01/29/19 15:01 01/29/19 14:19 - Laboratory Result Diagrams: 01/29/19 09:55 01/29/19 09:55 Laboratory results interpreted by me: 01/29/19 01/29/19 01/29/19 09:55 09:55 09:55 WBC 11.8 H Eosinophils % 6.8 H Absolute Eosinophils 0.8 H PT 16.9 H Sodium 136.4 L Carbon Dioxide 21 L BUN 22 H Glucose 142 H Urine Ketones Stool for White Cells 01/29/19 01/29/19 11:35 11:35 WBC Eosinophils % Absolute Eosinophils PT Sodium Carbon Dioxide BUN Glucose Urine Ketones TRACE H Stool for White Cells FEW H Critical Care Note - Critical Care Note Total time excluding time spent on procedures (mins): 35 Comments: Hypotension Discharge - Discharge Clinical Impression: Colitis Hypotension Qualifiers: Hypotension type: unspecified hypotension type Qualified Code(s): I95.9 - Hypotension, unspecified Condition: Good Disposition: ADMITTED INPATIENT Admitting Provider: Martínez (Hospitalist) Unit Admitted: [facility]
[2019-01-29 11:56] LABS: APPEARANCE,URINE SLIGHTLY-CLOUDY; BILIRUBIN,URINE NEGATIVE (NEGATIVE); COLOR,URINE AMBER; GLUCOSE, URINE NEGATIVE (NEGATIVE); KETONES,URINE TRACE mg/dL (NEGATIVE); LEUKOCYTE ESTERASE,URINE NEGATIVE (NEGATIVE); NITRITE,URINE NEGATIVE (NEGATIVE); PROTEIN,URINE NEGATIVE (NEGATIVE); URINE SPECIFIC GRAVITY 1.023; UROBILINOGEN,URINE NEGATIVE mg/dL (<2.0)
[2019-01-29 11:58] LABS: INTERNATIONAL RATION (INR) 1.31; PROTHROMBIN TIME 16.9 SEC (11.4-15.4)
[2019-01-29 11:59] LABS: PARTIAL THROMBOPLASTIN TIME 35.4 SEC (23.5-35.8)
[2019-01-29] MEDS: RINGERS SOLUTION,LACTATED 1,000 ML IV PRN ×2 (12:08→13:09)
--- NOTE | 2019-01-29 12:35 | RADIOLOGY REPORT (SQ) ---
EXAM DESCRIPTION: CT ABD/PELVIS WITH IV ONLY COMPLETED DATE/TIME: 01/29/2019 12:12 pm REASON FOR STUDY: abd pain and bloody diarrhea COMPARISON: None. TECHNIQUE: CT scan of the abdomen and pelvis performed using helical scanning technique with dynamic intravenous contrast injection. No oral contrast. Images reviewed with lung, soft tissue, and bone windows. Reconstructed coronal and sagittal MPR images reviewed. Delayed images for evaluation of the urinary system also acquired. All images stored on PACS. All CT scanners at this facility use dose modulation, iterative reconstruction, and/or weight based d osing when appropriate to reduce radiation dose to as low as reasonably achievable (ALARA). [facility]: Dose Right [facility]: CareDose [facility]: Dose Right [facility]: Teradose 4D [facility]: [employer] CONTRAST TYPE AND DOSE: contrast/concentration: Isovue 350.00 mg/ml; Total Contrast Delivered: 96.0 ml; Total Saline Delivered: 64.5 ml RENAL FUNCTION: 922 creatinine 1.1 RADIATION DOSE: CT Rad equipment meets quality standard of care and radiation dose reduction techniq ues were employed. CTDIvol: 9.0 - 12.8 mGy. DLP: 1274 mGy-cm.. LIMITATIONS: None. FINDINGS: LOWER CHEST: There is limited ground-glass infiltrate in the lower lobes, right more than left. LIVER: Normal size. No masses. No dilated ducts. SPLEEN: Normal size. No focal lesions. PANCREAS: No masses. No significant calcifications. No adjacent inflammation or peripancreatic fluid collections. Pancreatic duct not dilated. GALLBLADDER: Surgically absent. ADRENAL GLANDS: No significant masses or asymmetry. RIGHT KIDNEY AND URETER: No masses. There is mild perinephric stranding. No significant calcificat ions. No hydronephrosis or hydroureter. LEFT KIDNEY AND URETER: No solid masses. No significant calcifications. No hydronephrosis or hydr oureter. AORTA AND VESSELS: No aneurysm. No dissection. Renal arteries, SMA, celiac without stenosis. RETROPERITONEUM: No retroperitoneal adenopathy, hemorrhage or masses. BOWEL AND PERITONEAL CAVITY: No obvious mass. There is some fluid in the colon. APPENDIX: Normal. PELVIS: No mass. No free fluid. Normal bladder. ABDOMINAL WALL: No masses. No hernias. BONES: No significant or acute findings. OTHER: No other significant finding. IMPRESSION: 1. There is some fluid in the colon. Correlate for enteritis. 2. Limited ground-glass infiltrate in the lower lobes. Nonspecific finding. May indicate chronic i nterstitial changes, interstitial edema, or atypical infectious/ inflammatory process. TECHNICAL DOCUMENTATION: JOB ID: [id number] Quality ID # [id number]: Final reports with documentation of one or more dose reduction techniques (e.g., Au tomated exposure control, adjustment of the mA and/or kV according to patient size, use of iterative reconstruction technique) 2010 [employer]- All Rights Reserved Reading location - IP/workstation name: [email or web address]
[2019-01-29] MEDS ORDERED: DICYCLOMINE HCL 20 MG TABLET PO ONE (14:05)
[2019-01-29] MEDS ORDERED: METRONIDAZOLE 500 MG TABLET PO ONE (14:06)
[2019-01-29] MEDS ORDERED: CIPROFLOXACIN HCL 500 MG TABLET PO ONE (14:06)
[2019-01-29] MEDS ORDERED: LEVALBUTEROL HCL NEB 0.63 MG/3 ML AMPUL NEB PRN (15:10)
[2019-01-29] MEDS ORDERED: DEXTROSE 40% GEL 15 GM TUBE PO PRN ×4 (15:10→15:23)
[2019-01-29] MEDS ORDERED: ONDANSETRON HCL INJ/PF 4 MG/2 ML SDV IV PRN (15:10)
[2019-01-29] MEDS ORDERED: DEXTROSE 50%-WATER 25 GM/50 ML DISP.SYRIN IV PRN ×4 (15:10→15:23)
[2019-01-29] MEDS ORDERED: GLUCAGON,HUMAN RECOMB 1 MG INJ SUBCUT PRN (15:10)
[2019-01-29] MEDS ORDERED: ACETAMINOPHEN 325 MG TABLET PO PRN (15:10)
[2019-01-29] MEDS ORDERED: (PENDING PHARMACY ID) (Cholecalciferol (Vitamin D3) [Vitamin D3] 1,000 UNIT) PO SCH (15:15)
[2019-01-29] MEDS ORDERED: (PENDING PHARMACY ID) (Rosuvastatin Calcium [Rosuvastatin Calcium] 20 MG) PO SCH (15:15)
[2019-01-29] MEDS ORDERED: GLUCAGON,HUMAN RECOMB 1 MG INJ IM PRN (15:23)
--- NOTE | 2019-01-29 15:41 | PDOC H&P ---
History of Present Illness Admission Date/PCP: 01/29/19 14:30 TANVIR CARTY MD Patient complains of: Nausea vomiting associated with bloody stools for the last 3 days History of Present Illness: MADELINE FISH is a 83 year old male with history of atrial fibrillation, has a pacemaker defibrillator, diabetes, hypertension, hyperlipidemia history of coronary artery disease status post bypass came to the emergency room with complaints of nausea vomiting associated with mild abdominal pain and loose stools with bright-colored blood for the last 3 to 4 days. Denies any fever. Complaining of cough which was chronic. Denies any recent medication change denies any recent antibiotic use. Also complaining of dizziness when always tried to stand up from sitting patient is feeling dizzy and lightheaded he has to hold onto the webster or railings to hold on. Is any headaches. denies any problems with urination. Went to talk to the patient in the emergency room he wants to be full code. pt agreed to stay in the hospital. Past Medical History Cardiac Medical History: Reports: Myocardial Infarction - X2, Hypertension Denies: Coronary Artery Disease Pulmonary Medical History: Reports: Pneumonia Denies: Asthma, Bronchitis, Chronic Obstructive Pulmonary Disease (COPD) Neurological Medical History: Denies: Seizures Endocrine Medical History: Reports: Diabetes Mellitus Type 2 GI Medical History: Denies: Hepatitis, Hiatal Hernia Musculoskeltal Medical History: Reports: Arthritis Hematology: Denies: Anemia, Sickle Cell Disease Past Surgical History Past Surgical History: Denies: Pacemaker Social History Lives with: Spouse/Significant other Smoking Status: Never Smoker - Advance Directive Resuscitation Status: Full Code Family History Family History: Reviewed & Not Pertinent Parental Family History Reviewed: Yes - mother With heart disease. Father with cold budget examiner's lung. Children Family History Reviewed: Yes Sibling(s) Family History Reviewed.: Yes Medication/Allergy Home Medications: Apixaban [Eliquis 5 mg Tablet] 5 mg PO BID 01/29/19 Aspirin [Ecotrin] 81 mg PO DAILY 01/29/19 Cholecalciferol (Vitamin D3) [Vitamin D3] 2,000 unit PO DAILY 01/29/19 Finasteride [Proscar 5 mg Tablet] 5 mg PO DAILY 01/29/19 Gabapentin 600 mg PO TID 01/29/19 Isosorbide Mononitrate [Imdur 30 mg Tablet.er] 30 mg PO DAILY 01/29/19 Lorazepam [Ativan 1 mg Tablet] 1 mg PO QPMP PRN 01/29/19 Metoprolol Succinate 50 mg PO QPM 01/29/19 Metoprolol Succinate 100 mg PO QAM 01/29/19 [place]-3 Acid Ethyl Esters [Lovaza 1 gm Capsule] 2 gm PO BID 01/29/19 Pramipexole Di-HCl [Mirapex 0.5 Mg Tablet] 0.5 mg PO 1400,199901/29/19 Rosuvastatin Calcium 20 mg PO DAILY 01/29/19 Sacubitril/Valsartan [Entresto 97 mg/103 mg Tablet] 1 tab PO BID 01/29/19 Sitagliptin Phosphate [Januvia 50 mg Tablet] 50 mg PO DAILY 01/29/19 Terazosin HCl 1 mg PO QPM 01/29/19 Allergies/Adverse Reactions: phenytoin sodium [From Dilantin] Allergy (Mild, Verified 06/22/17 09:24) itching, rash phenytoin sodium extended [From Dilantin] Allergy (Mild, Verified 06/22/17 09:24) itching, rash quinidine [Quinidine] Allergy (Mild, Verified 06/22/17 09:24) itching, rash acetaminophen [From Percocet] Adverse Reaction (Mild, Verified 06/22/17 09:24) RASH oxycodone [From Percocet] Adverse Reaction (Mild, Verified 06/22/17 09:24) RASH Review of Systems Constitutional: PRESENT: fatigue, weakness. ABSENT: fever(s), headache(s) Eyes: ABSENT: visual disturbances Ears: ABSENT: hearing changes Cardiovascular: ABSENT: chest pain Respiratory: PRESENT: cough Gastrointestinal: PRESENT: abdominal pain, nausea, vomiting Neurological: ABSENT: abnormal gait, abnormal speech, confusion, dizziness, focal weakness, syncope Psychiatric: ABSENT: anxiety, depression, homidical ideation, suicidal ideation Physical Exam Vital Signs: Temp Pulse Resp BP Pulse Ox 97.3 F 63 14 112/66 97 01/29/19 14:19 01/29/19 10:26 01/29/19 13:08 01/29/19 15:01 01/29/19 14:19 Intake & Output 01/28/19 01/29/19 01/30/19 06:59 06:59 06:59 Intake Total 1999 Balance 1999 Weight 84 kg General appearance: PRESENT: no acute distress Head exam: PRESENT: atraumatic Eye exam: PRESENT: PERRLA Neck exam: ABSENT: carotid bruit, JVD, lymphadenopathy, thyromegaly Respiratory exam: PRESENT: decreased breath sounds Cardiovascular exam: PRESENT: RRR. ABSENT: diastolic murmur, rubs, systolic murmur GI/Abdominal exam: PRESENT: normal bowel sounds, soft. ABSENT: distended, guarding, mass, organolmegaly, rebound, tenderness Rectal exam: PRESENT: deferred Neurological exam: PRESENT: alert, awake, oriented to person, oriented to place, oriented to time, oriented to situation, CN II-XII grossly intact. ABSENT: motor sensory deficit Psychiatric exam: PRESENT: appropriate affect, normal mood. ABSENT: homicidal ideation, suicidal ideation Results Laboratory Results: 01/29/19 09:55 01/29/19 09:55 01/29/19 01/29/19 01/29/19 09:55 09:55 11:35 WBC 11.8 H RBC 5.06 Hgb 15.1 Hct 44.7 MCV 88 MCH 29.7 MCHC 33.7 RDW 13.4 Plt Count 158 Seg Neutrophils % 62.6 Lymphocytes % 23.5 Monocytes % 6.8 Eosinophils % 6.8 H Basophils % 0.3 Absolute Neutrophils 7.4 Absolute Lymphocytes 2.8 Absolute Monocytes 0.8 Absolute Eosinophils 0.8 H Absolute Basophils 0.0 Sodium 136.4 L Potassium 4.6 Chloride 102 Carbon Dioxide 21 L Anion Gap 13 BUN 22 H Creatinine 1.10 Est GFR ( Amer) > 60 Est GFR (Non-Af Amer) > 60 Glucose 142 H Calcium 9.2 Total Bilirubin 0.8 AST 17 ALT 22 Alkaline Phosphatase 71 Total Protein 6.8 Albumin 4.0 Urine Color Urine Appearance Urine pH Ur Specific [place] Urine Protein Urine Glucose (UA) Urine Ketones Urine Blood Urine Nitrite Ur Leukocyte Esterase Urine WBC (Auto) Urine RBC (Auto) Stool Occult Blood Stool for White Cells FEW H 01/29/19 01/29/19 11:35 11:35 WBC RBC Hgb Hct MCV MCH MCHC RDW Plt Count Seg Neutrophils % Lymphocytes % Monocytes % Eosinophils % Basophils % Absolute Neutrophils Absolute Lymphocytes Absolute Monocytes Absolute Eosinophils Absolute Basophils Sodium Potassium Chloride Carbon Dioxide Anion Gap BUN Creatinine Est GFR ( Amer) Est GFR (Non-Af Amer) Glucose Calcium Total Bilirubin AST ALT Alkaline Phosphatase Total Protein Albumin Urine Color HOWARD Urine Appearance SLIGHTLY-CLOUDY Urine pH 5.0 Ur Specific [place] 1.023 Urine Protein NEGATIVE Urine Glucose (UA) NEGATIVE Urine Ketones TRACE H Urine Blood NEGATIVE Urine Nitrite NEGATIVE Ur Leukocyte Esterase NEGATIVE Urine WBC (Auto) 4 Urine RBC (Auto) 0 Stool Occult Blood POSITIVE Stool for White Cells Impressions: Abdomen/Pelvis CT 01/29/19 11:29 IMPRESSION: 1. There is some fluid in the colon. Correlate for enteritis. 2. Limited ground-glass infiltrate in the lower lobes. Nonspecific finding. May indicate chronic interstitial changes, interstitial edema, or atypical infectious/ inflammatory process. Assessment and Plan - Diagnosis (1) Colitis Is this a current diagnosis for this admission?: Yes Plan: 01/29/2019 patient is going to be admitted to [facility] for colitis and bloody diarrhea. He is going to be inpatient full code. He is going to be n.p.o. except for medications. GI prophylaxis was initiated to place him on SCDs. To hold Eliquis and Lovenox because of bloodstained diarrhea.. To start him on IV levofloxacillin 40 mg daily and IV Rocephin 2 g daily. Blood cultures stool cultures urine cultures pending. And to do the daily labs. Patient has a colonoscopy last year 2 flat polyps removed as per the family. (2) Hypotension Qualifiers: Hypotension type: unspecified hypotension type Qualified Code(s): I95.9 - Hypotension, unspecified Is this a current diagnosis for this admission?: Yes Plan: 01/29/2019-came in with systolic blood pressure of 80 and after 25 L of IV fluids blood pressure went up to 102/60. To hold his antihypertensive medications., Pulse precautions are requested plan is to continue IV fluids D5 half-normal saline at 80 cc/h. Aspiration fall seizure precautions are requested. Hypotension may be secondary to severe diarrhea. (3) Diabetes Qualifiers: Diabetes mellitus type: type 2 Is this a current diagnosis for this admission?: Yes Plan: 01/29/2019-patient has history of type 2 diabetes mellitus. Plan to put him on insulin sliding scale every 6 hours and patient is going to be n.p.o. for colitis started on D5 half-normal to prevent hypoglycemic episodes. (4) Atrial fibrillation Is this a current diagnosis for this admission?: No Plan: 01/29/2019-patient has history of atrial fibrillation. On Eliquis 5 mg p.o. twice daily. Plan to discontinue Eliquis because patient is having the bright- colored blood in the stool. (5) Pneumonia Is this a current diagnosis for this admission?: Yes Plan: CT scan of the abdomen shows opacifications in the lung malhotra there is a question about pneumonia patient was started on IV antibiotic therapy and blood cultures are requested plan to do the CT chest without contrast to get further information. At this point pneumonia is unlikely. - Time Time Spent with patient: 25-34 minutes Medications reviewed and adjusted accordingly: Yes Anticipated discharge: Home
--- NOTE | 2019-01-29 15:55 | RADIOLOGY REPORT (SQ) ---
EXAM DESCRIPTION: CHEST SINGLE VIEW COMPLETED DATE/TIME: 01/29/2019 3:22 pm REASON FOR STUDY: sob COMPARISON: 12/30/2015 EXAM PARAMETERS: NUMBER OF VIEWS: One view. TECHNIQUE: Single frontal radiographic view of the chest acquired. RADIATION DOSE: NA LIMITATIONS: None. FINDINGS: LUNGS AND PLEURA: Question of the right scapula versus possible mass projecting over the periphery of the right upper lung. No acute pulmonary consolidation. MEDIASTINUM AND HILAR STRUCTURES: No masses. Contour normal. HEART AND VASCULAR STRUCTURES: Stable appearance. BONES: No acute findings. HARDWARE: Prior anterior median sternotomy, cardiac pacemaker, and partially visualized reversed rig ht shoulder arthroplasty. OTHER: No other significant finding. IMPRESSION: 1. Question of right scapula versus possible mass projecting over the periphery of the right upper lung. Repeat examination with better positioning for re-evaluation. TECHNICAL DOCUMENTATION: JOB ID: [id number] [employer]- All Rights Reserved Reading location - IP/workstation name: [email or web address]
[2019-01-29] MEDS ORDERED: (PENDING PHARMACY ID) (Isosorbide Mononitrate [Isosorbide Mononitrate Er] 120 MG) PO SCH (16:00)
--- NOTE | 2019-01-29 16:14 | RADIOLOGY REPORT (SQ) ---
EXAM DESCRIPTION: CT CHEST WITHOUT COMPLETED DATE/TIME: 01/29/2019 3:34 pm REASON FOR STUDY: pneumonia COMPARISON: None. TECHNIQUE: CT scan performed of the chest without intravenous contrast. Images reviewed with lung, soft tissue and bone windows. Reconstructed coronal and sagittal MPR images reviewed. All images st ored on PACS. All CT scanners at this facility use dose modulation, iterative reconstruction, and/or weight based d osing when appropriate to reduce radiation dose to as low as reasonably achievable (ALARA). [facility]: Dose Right [facility]: CareDose [facility]: Dose Right [facility]: Teradose 4D [facility]: Zuli RADIATION DOSE: CT Rad equipment meets quality standard of care and radiation dose reduction techniq ues were employed. CTDIvol: 17.5 mGy. DLP: 704 mGy-cm. mGy. LIMITATIONS: Motion. FINDINGS: LUNGS AND PLEURA: Interlobular septal thickening posteriorly and along the major fissures. Hazy ground-glass attenuation dependently in the lower lobes. No infiltrate. No effusions. HILAR AND MEDIASTINAL STRUCTURES: No identified masses or abnormal nodes. No obvious aneurysm. HEART AND VASCULAR STRUCTURES: No aneurysm. No pericardial effusion. UPPER ABDOMEN: See separate report of the CT of the abdomen. THYROID AND OTHER SOFT TISSUES: No masses. No adenopathy. BONES: Nothing acute. HARDWARE: None in the chest. OTHER: No other significant findings. IMPRESSION: Nonspecific ground-glass attenuation in the dependent portions of the lower lobes could be atelectasis or early pneumonia. No infiltrate. TECHNICAL DOCUMENTATION: JOB ID: [id number] Quality ID # [id number]: Final reports with documentation of one or more dose reduction techniques (e.g., Au tomated exposure control, adjustment of the mA and/or kV according to patient size, use of iterative reconstruction technique) 2010 [employer]- All Rights Reserved Reading location - IP/workstation name: [email or web address]
[2019-01-29] MEDS: FAMOTIDINE INJ/PF 20 MG/2 ML SDV IV SCH ×2 (16:52→22:08)
[2019-01-29] MEDS: CEFTRIAXONE 2 GM/D5W RTU 2 GM/50 ML RTUPB IV SCH (16:53)
[2019-01-29] MEDS: ISOSORBIDE MONONITRATE 30 MG TAB.ER.24H PO SCH (16:54)
[2019-01-29] MEDS: CHOLECALCIFEROL (D3) 1,000 UNIT TABLET PO SCH (16:55)
[2019-01-29] MEDS: INSULIN LISPRO 100 UNIT/ML 3 ML VIAL SUBCUT SCH (17:58)
[2019-01-29] MEDS ORDERED: OMEGA-3 ACID ETHYL ESTERS 1 GM CAPSULE PO SCH (18:00)
[2019-01-29] MEDS ORDERED: APIXABAN 5 MG TABLET PO SCH (18:00)
[2019-01-29] MEDS ORDERED: (PENDING PHARMACY ID) (Terazosin Hcl [Terazosin Hcl] 1 MG) PO SCH (18:00)
[2019-01-29] MEDS ORDERED: FINASTERIDE 5 MG TABLET PO SCH (18:00)
[2019-01-29] MEDS ORDERED: PRAMIPEXOLE DI HCL 0.5 MG PO SCH (18:00)
[2019-01-29] MEDS: DOXAZOSIN MESYLATE 1 MG TABLET PO SCH (18:36)
[2019-01-29] MEDS: DEXTROSE 5%-1/2 NORMAL SALINE 1,000 ML IV PRN (19:00)
[2019-01-29] MEDS: ATORVASTATIN CALCIUM 40 MG TABLET PO SCH (22:07)
[2019-01-29] MEDS: OMEGA-3 ACID ETHYL ESTERS 1 GM CAPSULE PO SCH (22:07)
[2019-01-29] MEDS: GABAPENTIN 300 MG CAPSULE PO SCH (22:08)
[2019-01-29] MEDS: PRAMIPEXOLE DI-HCL 0.5 MG TABLET PO SCH (22:20)
[2019-01-29] MEDS: FINASTERIDE 5 MG TABLET PO SCH (22:23)
[2019-01-30 06:16] LABS: ALANINE AMINOTRANSFERASE 23 U/L (21-72); ALBUMIN 3.2 g/dL (3.5-5.0); ALKALINE PHOSPHATASE 59 U/L (38-126); ANION GAP 10 (5-19); ASPARTATE AMINO TRANSFERASE 14 U/L (17-59); BILIRUBIN,DIRECT 0.2 mg/dL (0.0-0.4); BILIRUBIN,TOTAL 0.5 mg/dL (0.2-1.3); BLOOD UREA NITROGEN 14 mg/dL (7-20); CALCIUM 8.7 mg/dL (8.4-10.2); CARBON DIOXIDE 26 mmol/L (22-30); CHLORIDE 104 mmol/L (98-107); CHOLESTEROL 67.01 mg/dL (0-200); GLUCOSE 145 mg/dL (75-110); POTASSIUM 3.7 mmol/L (3.6-5.0); SODIUM 139.7 mmol/L (137-145); TOTAL PROTEIN 5.6 g/dL (6.3-8.2); TRIGLYCERIDES 108 mg/dL (<150); VLDL CHOLESTEROL 21.6 mg/dL (10-31)
[2019-01-30] MEDS: GABAPENTIN 300 MG CAPSULE PO SCH ×3 (06:22→22:21)
[2019-01-30 06:24] LABS: DIRECT LDL < 30 mg/dL (<100)
[2019-01-30] MEDS: INSULIN LISPRO 100 UNIT/ML 3 ML VIAL SUBCUT SCH ×4 (06:33→17:03)
[2019-01-30 08:16] LABS: ABSOLUTE EOSINOPHILS # (AUTO) 0.8 10^3/uL (0.0-0.6); ABSOLUTE LYMPHOCYTES (AUTO) 1.4 10^3/uL (0.5-4.7); ABSOLUTE MONOCYTES (AUTO) 0.4 10^3/uL (0.1-1.4); ABSOLUTE NEUT (AUTO) 4.3 10^3/uL (1.7-8.2); BASOPHILS % (AUTO) 0.3 % (0-2); EOSINOPHILS % (AUTO) 11.9 % (0-6); HEMOGLOBIN 13.2 g/dL (13.5-17.0); MEAN CORPUSCULAR HEMOGLOBIN 29.5 pg (27.0-33.4); MEAN CORPUSCULAR HGB CONC 33.9 g/dL (32.0-36.0); MEAN CORPUSCULAR VOLUME 87 fl (80-97); PLATELET COUNT 124 10^3/uL (150-450); RED BLOOD COUNT 4.48 10^6/uL (4.35-5.55); RED CELL DISTRIBUTION WIDTH 13.5 % (11.5-14.0); SEGMENTED NEUTROPHILS % (AUTO) 61.8 % (42-78); TOTAL CELLS COUNTED % (AUTO) 100 %
[2019-01-30] MEDS: FINASTERIDE 5 MG TABLET PO SCH (09:39)
[2019-01-30] MEDS: OMEGA-3 ACID ETHYL ESTERS 1 GM CAPSULE PO SCH ×2 (09:39→22:20)
[2019-01-30] MEDS: ISOSORBIDE MONONITRATE 30 MG TAB.ER.24H PO SCH (09:39)
[2019-01-30] MEDS: CHOLECALCIFEROL (D3) 1,000 UNIT TABLET PO SCH (09:39)
[2019-01-30] MEDS: LEVOFLOXACIN 500 MG/D5W RTU 500 MG/100 ML RTUPB IV SCH (09:40)
[2019-01-30] MEDS: FAMOTIDINE INJ/PF 20 MG/2 ML SDV IV SCH ×2 (09:42→22:21)
[2019-01-30 12:38] LABS: HEMOGLOBIN 13.7 g/dL (13.5-17.0); MEAN CORPUSCULAR HEMOGLOBIN 29.9 pg (27.0-33.4); MEAN CORPUSCULAR HGB CONC 34.3 g/dL (32.0-36.0); MEAN CORPUSCULAR VOLUME 87 fl (80-97); PLATELET COUNT 124 10^3/uL (150-450); RED CELL DISTRIBUTION WIDTH 13.5 % (11.5-14.0)
[2019-01-30] MEDS ORDERED: METOPROLOL TARTRATE PF/INJ 5 MG/5 ML SDV IV PRN (13:28)
--- NOTE | 2019-01-30 13:32 | PDOC PROGRESS REPORT ---
Subjective Progress Note for:: 01/30/19 Subjective:: 83 y.o. M with a PMH of xx presented with 4 days of N/V and loose/black stools. The patient was admitted to the hospitalist service for suspected colitis. The patient was seen this morning on rounds. He had just returned from the bathroom after having a BM. Inspection of the stool reveals black, watery melena with a very foul odor. Patient endorses mild symptoms of dizziness, denies abdominal pain or nausea. Blood pressure remains relatively low (SBP 96), patient states that his blood pressure is typically within normal range. Discussed patient's case with surgery, plan for colonoscopy tomorrow. Reason For Visit: COLITIS Physical Exam Vital Signs: Temp Pulse Resp BP Pulse Ox 97.7 F 68 16 122/56 L 96 01/30/19 12:01 01/30/19 12:01 01/30/19 12:01 01/30/19 12:01 01/30/19 12:01 Intake & Output 01/29/19 01/30/19 01/31/19 06:59 06:59 06:59 Intake Total 3000 100 Balance 3000 100 Weight 82.4 kg General appearance: PRESENT: no acute distress, well-developed, well-nourished Head exam: PRESENT: atraumatic, normocephalic Eye exam: PRESENT: conjunctiva pink, EOMI, PERRLA. ABSENT: scleral icterus Ear exam: PRESENT: normal external ear exam Mouth exam: PRESENT: moist, tongue midline Neck exam: ABSENT: carotid bruit, JVD, lymphadenopathy, thyromegaly Respiratory exam: PRESENT: clear to auscultation samuel, symmetrical. ABSENT: rales, rhonchi, wheezes Cardiovascular exam: PRESENT: RRR. ABSENT: diastolic murmur, rubs, systolic murmur Pulses: PRESENT: normal radial pulses, normal dorsalis pedis pul Vascular exam: PRESENT: normal capillary refill GI/Abdominal exam: PRESENT: normal bowel sounds, soft. ABSENT: distended, guarding, mass, organolmegaly, rebound, tenderness Rectal exam: PRESENT: deferred Extremities exam: PRESENT: full ROM. ABSENT: calf tenderness, clubbing, pedal edema Musculoskeletal exam: PRESENT: ambulatory, full ROM Neurological exam: PRESENT: alert, awake, oriented to person, oriented to place, oriented to time, oriented to situation Psychiatric exam: PRESENT: appropriate affect, normal mood Skin exam: PRESENT: dry, intact, warm. ABSENT: cyanosis, rash Results Laboratory Results: 01/30/19 12:13 01/30/19 04:40 01/29/19 01/30/19 01/30/19 15:00 04:40 04:40 WBC 7.0 RBC 4.48 Hgb 13.2 L Hct 39.0 MCV 87 MCH 29.5 MCHC 33.9 RDW 13.5 Plt Count 124 L Seg Neutrophils % 61.8 Lymphocytes % 20.0 Monocytes % 6.0 Eosinophils % 11.9 H Basophils % 0.3 Absolute Neutrophils 4.3 Absolute Lymphocytes 1.4 Absolute Monocytes 0.4 Absolute Eosinophils 0.8 H Absolute Basophils 0.0 Sodium 139.7 Potassium 3.7 Chloride 104 Carbon Dioxide 26 Anion Gap 10 BUN 14 Creatinine 0.86 Est GFR ( Amer) > 60 Est GFR (Non-Af Amer) > 60 Glucose 145 H Lactic Acid 0.9 Calcium 8.7 Magnesium 1.6 Total Bilirubin 0.5 AST 14 L ALT 23 Alkaline Phosphatase 59 Total Protein 5.6 L Albumin 3.2 L Triglycerides 108 Cholesterol 67.01 LDL Cholesterol Direct < 30 VLDL Cholesterol 21.6 HDL Cholesterol 38 L TSH 01/30/19 01/30/19 04:40 12:13 WBC 7.0 RBC 4.60 Hgb 13.7 Hct 40.0 MCV 87 MCH 29.9 MCHC 34.3 RDW 13.5 Plt Count 124 L Seg Neutrophils % Lymphocytes % Monocytes % Eosinophils % Basophils % Absolute Neutrophils Absolute Lymphocytes Absolute Monocytes Absolute Eosinophils Absolute Basophils Sodium Potassium Chloride Carbon Dioxide Anion Gap BUN Creatinine Est GFR ( Amer) Est GFR (Non-Af Amer) Glucose Lactic Acid Calcium Magnesium Total Bilirubin AST ALT Alkaline Phosphatase Total Protein Albumin Triglycerides Cholesterol LDL Cholesterol Direct VLDL Cholesterol HDL Cholesterol TSH 1.50 01/29/19 01/29/19 01/29/19 16:36 16:36 22:53 Creatine Kinase 64 62 CK-MB (CK-2) 2.36 NT-Pro-B Natriuret Pep 01/29/19 01/30/19 01/30/19 22:53 04:40 04:40 Creatine Kinase 55 CK-MB (CK-2) 2.24 2.11 NT-Pro-B Natriuret Pep 01/30/19 04:40 Creatine Kinase CK-MB (CK-2) NT-Pro-B Natriuret Pep 225 Impressions: Chest CT 01/29/19 00:00 IMPRESSION: Nonspecific ground-glass attenuation in the dependent portions of the lower lobes could be atelectasis or early pneumonia. No infiltrate. Abdomen/Pelvis CT 01/29/19 11:29 IMPRESSION: 1. There is some fluid in the colon. Correlate for enteritis. 2. Limited ground-glass infiltrate in the lower lobes. Nonspecific finding. May indicate chronic interstitial changes, interstitial edema, or atypical infectious/ inflammatory process. Chest X-Ray 01/29/19 14:24 IMPRESSION: 1. Question of right scapula versus possible mass projecting over the periphery of the right upper lung. Repeat examination with better positioning for re-evaluation. Status: Imported from PACS Assessment and Plan - Diagnosis (1) GI bleed Is this a current diagnosis for this admission?: Yes Plan: Lower GI bleed - watery, black tarry stool. Very foul odor Exacerbated by anticoagulation use Colonoscopy 1 yr ago showed 2 flat polyps that was managed by GI at [facility] (outpatient) Hgb 13, trend q6h as long as patient is passing melena Transfuse if Hgb < 8 Eliquis currently on hold Surgery consulted, plan for colonoscopy tomorrow (2) Atrial fibrillation Is this a current diagnosis for this admission?: No Plan: History of atrial fibrillation on Eliquis [employer] pacemaker/defibrillator placed last year Currently rate controlled in NSR Home metoprolol on hold due to hypotension (3) Diabetes Qualifiers: Diabetes mellitus type: type 2 Is this a current diagnosis for this admission?: Yes Plan: PMH of type 2 diabetes mellitus. Hgb A1c 6.4 Accu-Cheks before meals at bedtime Humalog sliding scale insulin D5 half-normal to prevent hypoglycemic episodes. (4) Hypotension Qualifiers: Hypotension type: unspecified hypotension type Qualified Code(s): I95.9 - Hypotension, unspecified Is this a current diagnosis for this admission?: Yes Plan: Secondary to diarrhea (volume loss) and lower GI bleed (blood loss) Initial SBP of 80, and after 2.5 L of IV fluids blood pressure increased to 102/60. Continue IV fluids D5 half-normal saline at 80 cc/h. Antihypertensives on HOLD Trending CBC, will transfuse if Hgb < 8.0 - Time Time Spent with patient: 15-24 minutes Medications reviewed and adjusted accordingly: Yes Anticipated discharge: Home - Inpatient Certification Based on my medical assessment, after consideration of the patient's comorbidities, presenting symptoms, or acuity I expect that the services needed warrant INPATIENT care.: Yes I certify that my determination is in accordance with my understanding of Medicare's requirements for reasonable and necessary INPATIENT services [42 CFR 412.3e].: Yes Medical Necessity: Risk of Complication if Not Cared For in Hospital
[2019-01-30] MEDS: PRAMIPEXOLE DI-HCL 0.5 MG TABLET PO SCH ×2 (13:39→21:28)
[2019-01-30] MEDS ORDERED: PEG 3350/NA SULF,BICARB,CL/KCL 4000 ML PO ONE (14:30)
[2019-01-30] MEDS: DEXTROSE 5%-1/2 NORMAL SALINE 1,000 ML IV PRN (16:08)
[2019-01-30] MEDS: CEFTRIAXONE 2 GM/D5W RTU 2 GM/50 ML RTUPB IV SCH (16:12)
[2019-01-30] MEDS: DOXAZOSIN MESYLATE 1 MG TABLET PO SCH (17:10)
--- NOTE | 2019-01-30 19:20 | PDOC CONSULTATION ---
Consultation Consult Date: 01/30/19 Attending physician:: CHANDNI PAULINO Consult reason:: lower gi bleed History of Present Illness Admission Date/PCP: 01/29/19 14:30 TANVIR CARTY MD History of Present Illness: MADELINE FISH is a 83 year old male with history of atrial fibrillation, has a pacemaker defibrillator, diabetes, hypertension, hyperlipidemia history of coronary artery disease status post bypass came to the emergency room with complaints of nausea vomiting associated with mild abdominal pain and loose stools with bright-colored blood for the last 3 to 4 days. Denies any fever. Complaining of cough which was chronic. pt was admitted by medicine for observation and he continues to have dark blood per rectum his last colonoscopy was approx a yr ago. Past Medical History Cardiac Medical History: Reports: Myocardial Infarction - X2, Hypertension Denies: Coronary Artery Disease Pulmonary Medical History: Reports: Pneumonia Denies: Asthma, Bronchitis, Chronic Obstructive Pulmonary Disease (COPD) Neurological Medical History: Denies: Seizures Endocrine Medical History: Reports: Diabetes Mellitus Type 2 GI Medical History: Reports: Other - had colo at [facility] in sessile polyp in cecum, resected in [place] Denies: Hepatitis, Hiatal Hernia Musculoskeltal Medical History: Reports: Arthritis Hematology: Denies: Anemia, Sickle Cell Disease Past Surgical History Past Surgical History: Denies: Pacemaker Social History Lives with: Spouse/Significant other Smoking Status: Never Smoker Frequency of Alcohol Use: Rare Hx Recreational Drug Use: No Hx Prescription Drug Abuse: No - Advance Directive Resuscitation Status: Full Code Family History Family History: Reviewed & Not Pertinent Parental Family History Reviewed: No Children Family History Reviewed: NA Sibling(s) Family History Reviewed.: NA Medication/Allergy Home Medications: Apixaban [Eliquis 5 mg Tablet] 5 mg PO BID 01/29/19 Aspirin [Ecotrin] 81 mg PO DAILY 01/29/19 Cholecalciferol (Vitamin D3) [Vitamin D3] 2,000 unit PO DAILY 01/29/19 Finasteride [Proscar 5 mg Tablet] 5 mg PO DAILY 01/29/19 Gabapentin 600 mg PO TID 01/29/19 Isosorbide Mononitrate [Imdur 30 mg Tablet.er] 30 mg PO DAILY 01/29/19 Lorazepam [Ativan 1 mg Tablet] 1 mg PO QPMP PRN 01/29/19 Metoprolol Succinate 50 mg PO QPM 01/29/19 Metoprolol Succinate 100 mg PO QAM 01/29/19 [place]-3 Acid Ethyl Esters [Lovaza 1 gm Capsule] 2 gm PO BID 01/29/19 Pramipexole Di-HCl [Mirapex 0.5 Mg Tablet] 0.5 mg PO 1400,199901/29/19 Rosuvastatin Calcium 20 mg PO DAILY 01/29/19 Sacubitril/Valsartan [Entresto 97 mg/103 mg Tablet] 1 tab PO BID 01/29/19 Sitagliptin Phosphate [Januvia 50 mg Tablet] 50 mg PO DAILY 01/29/19 Terazosin HCl 1 mg PO QPM 01/29/19 Allergies/Adverse Reactions: phenytoin sodium [From Dilantin] Allergy (Mild, Verified 06/22/17 09:24) itching, rash quinidine [Quinidine] Allergy (Mild, Verified 06/22/17 09:24) itching, rash oxycodone [From Percocet] Adverse Reaction (Mild, Verified 06/22/17 09:24) RASH Review of Systems Constitutional: ABSENT: chills, fever(s), headache(s), weight gain, weight loss Eyes: ABSENT: visual disturbances Ears: ABSENT: hearing changes Nose, Mouth, and Throat: PRESENT: other - denies headaches Cardiovascular: PRESENT: other - no c/o chest pain Respiratory: PRESENT: cough Gastrointestinal: PRESENT: abdominal pain, hematochezia, nausea, vomiting Genitourinary: ABSENT: dysuria, hematuria Musculoskeletal: ABSENT: joint swelling Integumentary: ABSENT: rash, wounds Neurological: ABSENT: abnormal gait, abnormal speech, confusion, dizziness, focal weakness, syncope Psychiatric: ABSENT: anxiety, depression, homidical ideation, suicidal ideation Endocrine: ABSENT: cold intolerance, heat intolerance, polydipsia, polyuria Hematologic/Lymphatic: ABSENT: easy bleeding, easy bruising Physical Exam Vital Signs: Temp Pulse Resp BP Pulse Ox 97.4 F 77 18 120/67 98 01/30/19 17:10 01/30/19 17:10 01/30/19 17:10 01/30/19 17:10 01/30/19 17:10 Intake & Output 01/29/19 01/30/19 01/31/19 06:59 06:59 06:59 Intake Total 3050 1166 Balance 3050 1166 Weight 82.4 kg General appearance: PRESENT: no acute distress Head exam: PRESENT: normocephalic Eye exam: PRESENT: EOMI Mouth exam: PRESENT: moist Neck exam: PRESENT: full ROM Respiratory exam: PRESENT: clear to auscultation samuel Cardiovascular exam: PRESENT: RRR Pulses: PRESENT: normal radial pulses, normal femoral pulses GI/Abdominal exam: PRESENT: soft Rectal exam: PRESENT: deferred Extremities exam: PRESENT: full ROM Musculoskeletal exam: PRESENT: full ROM Neurological exam: PRESENT: alert, awake, oriented to person, oriented to place, oriented to time, oriented to situation Psychiatric exam: PRESENT: appropriate affect Skin exam: PRESENT: dry Results Laboratory Results: 01/30/19 12:13 01/30/19 04:40 01/30/19 01/30/19 01/30/19 04:40 04:40 04:40 WBC 7.0 RBC 4.48 Hgb 13.2 L Hct 39.0 MCV 87 MCH 29.5 MCHC 33.9 RDW 13.5 Plt Count 124 L Seg Neutrophils % 61.8 Lymphocytes % 20.0 Monocytes % 6.0 Eosinophils % 11.9 H Basophils % 0.3 Absolute Neutrophils 4.3 Absolute Lymphocytes 1.4 Absolute Monocytes 0.4 Absolute Eosinophils 0.8 H Absolute Basophils 0.0 Sodium 139.7 Potassium 3.7 Chloride 104 Carbon Dioxide 26 Anion Gap 10 BUN 14 Creatinine 0.86 Est GFR ( Amer) > 60 Est GFR (Non-Af Amer) > 60 Glucose 145 H Calcium 8.7 Magnesium 1.6 Total Bilirubin 0.5 AST 14 L ALT 23 Alkaline Phosphatase 59 Total Protein 5.6 L Albumin 3.2 L Triglycerides 108 Cholesterol 67.01 LDL Cholesterol Direct < 30 VLDL Cholesterol 21.6 HDL Cholesterol 38 L TSH 1.50 01/30/19 12:13 WBC 7.0 RBC 4.60 Hgb 13.7 Hct 40.0 MCV 87 MCH 29.9 MCHC 34.3 RDW 13.5 Plt Count 124 L Seg Neutrophils % Lymphocytes % Monocytes % Eosinophils % Basophils % Absolute Neutrophils Absolute Lymphocytes Absolute Monocytes Absolute Eosinophils Absolute Basophils Sodium Potassium Chloride Carbon Dioxide Anion Gap BUN Creatinine Est GFR ( Amer) Est GFR (Non-Af Amer) Glucose Calcium Magnesium Total Bilirubin AST ALT Alkaline Phosphatase Total Protein Albumin Triglycerides Cholesterol LDL Cholesterol Direct VLDL Cholesterol HDL Cholesterol TSH 01/29/19 01/29/19 01/29/19 16:36 16:36 22:53 Creatine Kinase 64 62 CK-MB (CK-2) 2.36 NT-Pro-B Natriuret Pep 01/29/19 01/30/19 01/30/19 22:53 04:40 04:40 Creatine Kinase 55 CK-MB (CK-2) 2.24 2.11 NT-Pro-B Natriuret Pep 01/30/19 04:40 Creatine Kinase CK-MB (CK-2) NT-Pro-B Natriuret Pep 225 Impressions: Chest CT 01/29/19 00:00 IMPRESSION: Nonspecific ground-glass attenuation in the dependent portions of the lower lobes could be atelectasis or early pneumonia. No infiltrate. Abdomen/Pelvis CT 01/29/19 11:29 IMPRESSION: 1. There is some fluid in the colon. Correlate for enteritis. 2. Limited ground-glass infiltrate in the lower lobes. Nonspecific finding. May indicate chronic interstitial changes, interstitial edema, or atypical infectious/ inflammatory process. Chest X-Ray 01/29/19 14:24 IMPRESSION: 1. Question of right scapula versus possible mass projecting over the periphery of the right upper lung. Repeat examination with better positioning for re-evaluation. Assessment & Plan - Diagnosis (1) Colitis Is this a current diagnosis for this admission?: Yes (2) GI bleed Is this a current diagnosis for this admission?: Yes - Plan Summary Plan Summary: pt admitted for question of colitis\ developed dark blood per rectum while in hosp on Eilquis for atrial fibrillation. had a colonosocopy in 2017 sesile polyp in cecum noted, then referred to [place] for resection reported by pt to be benign. plan- colonoscopy. risks benifits discussed with pt incluiding Bleeding, infection, stroke, Heart attack pulm emboli, Missed lesions or polyps perforation and need for additional surgery possible pt agrees to proceed.
[2019-01-30 19:53] LABS: HEMOGLOBIN 14.9 g/dL (13.5-17.0); MEAN CORPUSCULAR HEMOGLOBIN 29.8 pg (27.0-33.4); MEAN CORPUSCULAR HGB CONC 33.9 g/dL (32.0-36.0); MEAN CORPUSCULAR VOLUME 88 fl (80-97); PLATELET COUNT 147 10^3/uL (150-450); RED BLOOD COUNT 5.01 10^6/uL (4.35-5.55); RED CELL DISTRIBUTION WIDTH 13.4 % (11.5-14.0); WHITE BLOOD COUNT 8.8 10^3/uL (4.0-10.5)
[2019-01-30] MEDS: ATORVASTATIN CALCIUM 40 MG TABLET PO SCH (22:20)
[2019-01-31] MEDS: INSULIN LISPRO 100 UNIT/ML 3 ML VIAL SUBCUT SCH ×5 (00:16→23:13)
[2019-01-31 00:36] LABS: HEMATOCRIT 39.9 % (37.9-51.0); HEMOGLOBIN 13.7 g/dL (13.5-17.0); MEAN CORPUSCULAR HEMOGLOBIN 29.9 pg (27.0-33.4); MEAN CORPUSCULAR HGB CONC 34.4 g/dL (32.0-36.0); MEAN CORPUSCULAR VOLUME 87 fl (80-97); PLATELET COUNT 130 10^3/uL (150-450); RED BLOOD COUNT 4.59 10^6/uL (4.35-5.55); RED CELL DISTRIBUTION WIDTH 13.4 % (11.5-14.0); WHITE BLOOD COUNT 8.1 10^3/uL (4.0-10.5)
[2019-01-31 05:00] LABS: HEMATOCRIT 39.1 % (37.9-51.0); HEMOGLOBIN 13.3 g/dL (13.5-17.0); MEAN CORPUSCULAR VOLUME 88 fl (80-97); PLATELET COUNT 122 10^3/uL (150-450); RED BLOOD COUNT 4.42 10^6/uL (4.35-5.55); RED CELL DISTRIBUTION WIDTH 13.4 % (11.5-14.0); WHITE BLOOD COUNT 6.6 10^3/uL (4.0-10.5)
[2019-01-31] MEDS: GABAPENTIN 300 MG CAPSULE PO SCH ×3 (05:53→21:33)
[2019-01-31] MEDS: DEXTROSE 5%-1/2 NORMAL SALINE 1,000 ML IV PRN ×2 (08:04→21:34)
[2019-01-31] MEDS ORDERED: DIPHENHYDRAMINE HCL 50 MG/ML VIAL ONE (09:05)
[2019-01-31] MEDS ORDERED: ONDANSETRON HCL INJ/PF 4 MG/2 ML SDV ONE (09:05)
[2019-01-31] MEDS ORDERED: EPINEPHRINE INJ 1 MG/10 ML DISP.SYRIN ONE (09:06)
[2019-01-31] MEDS ORDERED: NALOXONE HCL INJ/PF 0.4 MG/1 ML SDV ONE (09:06)
[2019-01-31] MEDS ORDERED: GLUCAGON,HUMAN RECOMB 1 MG INJ ONE (09:06)
[2019-01-31] MEDS ORDERED: FLUMAZENIL INJ 0.5 MG/5 ML VIAL ONE (09:06)
[2019-01-31] MEDS ORDERED: FENTANYL CITRATE INJ/PF 100 MCG/2 ML AMPUL ONE (09:06)
[2019-01-31] MEDS: MIDAZOLAM 2 MG/2 ML INJ ONE ×2 (10:42→10:50)
--- NOTE | 2019-01-31 10:45 | PDOC PROGRESS REPORT ---
Subjective Progress Note for:: 01/31/19 Subjective:: No more visible bleeding. Still having loose stools. Reason For Visit: COLITIS Physical Exam Vital Signs: Temp Pulse Resp BP Pulse Ox 97.7 F 77 18 162/82 H 100 01/31/19 08:24 01/31/19 10:20 01/31/19 10:20 01/31/19 10:20 01/31/19 10:20 Intake & Output 01/30/19 01/31/19 02/01/19 06:59 06:59 06:59 Intake Total 3050 2466 Balance 3050 2466 Weight 82.4 kg 81.6 kg General appearance: PRESENT: no acute distress, other - Patient is hard of hearing GI/Abdominal exam: PRESENT: other - Soft, nontender Results Laboratory Results: 01/31/19 04:27 01/30/19 04:40 01/30/19 01/30/19 01/31/19 12:13 19:47 00:22 WBC 7.0 8.8 8.1 RBC 4.60 5.01 4.59 Hgb 13.7 14.9 13.7 Hct 40.0 44.0 39.9 MCV 87 88 87 MCH 29.9 29.8 29.9 MCHC 34.3 33.9 34.4 RDW 13.5 13.4 13.4 Plt Count 124 L 147 L 130 L 01/31/19 04:27 WBC 6.6 RBC 4.42 Hgb 13.3 L Hct 39.1 MCV 88 MCH 30.0 MCHC 34.0 RDW 13.4 Plt Count 122 L 01/29/19 01/29/19 01/29/19 16:36 16:36 22:53 Creatine Kinase 64 62 CK-MB (CK-2) 2.36 NT-Pro-B Natriuret Pep 01/29/19 01/30/19 01/30/19 22:53 04:40 04:40 Creatine Kinase 55 CK-MB (CK-2) 2.24 2.11 NT-Pro-B Natriuret Pep 01/30/19 04:40 Creatine Kinase CK-MB (CK-2) NT-Pro-B Natriuret Pep 225 Impressions: Chest CT 01/29/19 00:00 IMPRESSION: Nonspecific ground-glass attenuation in the dependent portions of the lower lobes could be atelectasis or early pneumonia. No infiltrate. Abdomen/Pelvis CT 01/29/19 11:29 IMPRESSION: 1. There is some fluid in the colon. Correlate for enteritis. 2. Limited ground-glass infiltrate in the lower lobes. Nonspecific finding. May indicate chronic interstitial changes, interstitial edema, or atypical infectious/ inflammatory process. Chest X-Ray 01/29/19 14:24 IMPRESSION: 1. Question of right scapula versus possible mass projecting over the periphery of the right upper lung. Repeat examination with better positioning for re-evaluation. Assessment & Plan - Diagnosis (1) GI bleed Is this a current diagnosis for this admission?: Yes Plan: Impression: Occult GI bleed without significant drop in hemoglobin; history of partial cecal polypectomy in 2017 Recommendations: Proceed with full colonoscopy possible polypectomy, possible biopsy; bowel prep progress. I discussed the risk benefits and alternatives of planned procedure. Patient expresses understanding and agreed to proceed.
--- NOTE | 2019-01-31 11:24 | Operative Report ---
Operative Report DATE OF SURGERY: 01/31/19 PREOPERATIVE DIAGNOSIS: 1. GI bleed. 2. History of polyps including cecal po lyp partially removed in 2017 POSTOPERATIVE DIAGNOSIS: 1. No evidence of colonic bleeding source. 2. No evidence of cecal polyp. 3. Small sessile polyp at 50 cm from anal verge. 4. Hemorrhoids OPERATION: 1. Total colonoscopy to cecum. 2. Hot snare polypectomy of left colon polyp SURGEON: TAMARA WORLEY ANESTHESIA: Moderate Sedation TISSUE REMOVED OR ALTERED: Polyp COMPLICATIONS: None ESTIMATED BLOOD LOSS: None INTRAOPERATIVE FINDINGS: See below PROCEDURE: Obtaining informed consent the patient was taken from the preoperative holding area to the main endoscopy suite where monitoring devices were attached to the patient. Plan and surgical timeout were conducted The patient was placed in the left lateral decubitus position with knees to chest. A perianal examination was performed. There was no visible or palpable anorectal pathology. Sphincter tone was felt to be normal. Posterior surface of the prostate gland was slightly enlarged. There were external and internal hemorrhoids, collapsed, not actively bleeding. The flexible adult colonoscope was advanced through the anal rectal canal, all the way to the cecum. Visualization of the cecum was achieved and the ileocecal valve, the appendiceal orifice and transillumination of the anterior abdominal wall was achieved. There was no evidence of polyp seen.. This was a very good study on a reasonably well-prepped bowel. There was some residual green watery and flake-like stool which irrigated out easily . The colonoscope was withdrawn slowly and methodically checked and the mucosa carefully. There was no evidence of tumor, stricture, bleeding; there were no clots. A small sessile polyp approximately 2 mm in the colon, 50 cm from anal verge was hot snared and removed with the polypectomy snare. Specimen cauterized therefore not retrieved and not sent to pathology. Polypectomy site showed the bleeding. Photo taken. There was no evidence of diverticuloses. The scope was slowly withdrawn through the anal rectal canal. Complete visualization of the rectum was achieved with photodocumentation. The scope was withdrawn to the patient's anus. The patient tolerated the procedure well and was taken to the recovery area in stable condition. Per surveillance guidelines, patient be an appropriate candidate for follow-up colonoscopy in 3 to 5 years pending pathology report. Impression: Bright red blood per rectum, likely secondary to hemorrhoids; no colonoscopic evidence of GI bleeding source Plan: 1. Discussed the above with primary care team 2. Discussed the above with patient's daughter after procedure 3. We will sign off; reconsult if needed
[2019-01-31] MEDS: OMEGA-3 ACID ETHYL ESTERS 1 GM CAPSULE PO SCH ×2 (11:40→21:33)
[2019-01-31] MEDS: FAMOTIDINE INJ/PF 20 MG/2 ML SDV IV SCH ×2 (11:40→21:33)
[2019-01-31] MEDS: ISOSORBIDE MONONITRATE 30 MG TAB.ER.24H PO SCH (11:40)
[2019-01-31] MEDS: CHOLECALCIFEROL (D3) 1,000 UNIT TABLET PO SCH (11:40)
[2019-01-31] MEDS: FINASTERIDE 5 MG TABLET PO SCH (11:41)
[2019-01-31] MEDS: LEVOFLOXACIN 500 MG/D5W RTU 500 MG/100 ML RTUPB IV SCH (11:41)
[2019-01-31 13:14] LABS: HEMATOCRIT 41.3 % (37.9-51.0); HEMOGLOBIN 13.9 g/dL (13.5-17.0); MEAN CORPUSCULAR HEMOGLOBIN 29.9 pg (27.0-33.4); MEAN CORPUSCULAR HGB CONC 33.7 g/dL (32.0-36.0); MEAN CORPUSCULAR VOLUME 89 fl (80-97); PLATELET COUNT 135 10^3/uL (150-450); RED BLOOD COUNT 4.65 10^6/uL (4.35-5.55); RED CELL DISTRIBUTION WIDTH 13.5 % (11.5-14.0); WHITE BLOOD COUNT 6.5 10^3/uL (4.0-10.5)
[2019-01-31] MEDS: PRAMIPEXOLE DI-HCL 0.5 MG TABLET PO SCH ×2 (13:23→21:33)
[2019-01-31] MEDS: DOXAZOSIN MESYLATE 1 MG TABLET PO SCH (17:03)
[2019-01-31] MEDS: CEFTRIAXONE 2 GM/D5W RTU 2 GM/50 ML RTUPB IV SCH (17:04)
[2019-01-31] MEDS ORDERED: HYDRALAZINE HCL INJ/PF 20 MG/1 ML SDV IV PRN (19:31)
--- NOTE | 2019-01-31 20:15 | PDOC PROGRESS REPORT ---
Subjective Progress Note for:: 01/31/19 Subjective:: 83 y.o. M with a PMH of AFIB (on apixaban), SD x 2, HTN, AICD in place. He presented with 4 days of N/V and loose/black stools. The patient was admitted to the hospitalist service for suspected colitis. The patient was seen this morning on rounds. He had a BM this morning that nursing staff reports is bright red. Patient denies abdominal pain or nausea. Blood pressure has greatly improved today, increased from 90-->140. Colonoscopy done, was relatively normal. One polyp was identified and cauterized. There were internal and external hemorrhoids. There was no identifiable source of his GI bleeding. The conclusion was drawn that today's BRB came from a bleeding hemorrhoid. Discussed patient's case with [facility] and patient's clinical specialist vascular, Dr. Tisha Ovalle ([facility]). Will continue holding apixaban and instruct patient not to resume once discharged. There is no need for further interventions at this time. Will continue to monitor patient overnight for further episodes of bloody/black stool. If hgb remains WNL tomorrow, will plan for discharge home. Reason For Visit: COLITIS Physical Exam Vital Signs: Temp Pulse Resp BP Pulse Ox 97.5 F 73 18 110/60 98 01/31/19 15:02 01/31/19 15:02 01/31/19 15:02 01/31/19 15:02 01/31/19 15:02 Intake & Output 01/30/19 01/31/19 02/01/19 06:59 06:59 06:59 Intake Total 3050 2516 1692 Balance 3050 2516 1692 Weight 82.4 kg 81.6 kg General appearance: PRESENT: no acute distress, well-developed, well-nourished Head exam: PRESENT: atraumatic, normocephalic Eye exam: PRESENT: conjunctiva pink, EOMI, PERRLA. ABSENT: scleral icterus Ear exam: PRESENT: normal external ear exam Mouth exam: PRESENT: moist, tongue midline Neck exam: ABSENT: carotid bruit, JVD, lymphadenopathy, thyromegaly Respiratory exam: PRESENT: clear to auscultation samuel. ABSENT: rales, rhonchi, wheezes Cardiovascular exam: PRESENT: RRR. ABSENT: diastolic murmur, rubs, systolic murmur Pulses: PRESENT: normal radial pulses, normal dorsalis pedis pul Vascular exam: PRESENT: normal capillary refill GI/Abdominal exam: PRESENT: normal bowel sounds, soft. ABSENT: distended, guarding, mass, organolmegaly, rebound, tenderness Rectal exam: PRESENT: deferred Extremities exam: PRESENT: full ROM. ABSENT: calf tenderness, clubbing, pedal edema Neurological exam: PRESENT: alert, awake, oriented to person, oriented to place, oriented to time, oriented to situation Psychiatric exam: PRESENT: appropriate affect, normal mood. ABSENT: homicidal ideation, suicidal ideation Skin exam: PRESENT: dry, intact, warm. ABSENT: cyanosis, rash Results Laboratory Results: 01/31/19 12:43 01/30/19 04:40 01/30/19 01/31/19 01/31/19 19:47 00:22 04:27 WBC 8.8 8.1 6.6 RBC 5.01 4.59 4.42 Hgb 14.9 13.7 13.3 L Hct 44.0 39.9 39.1 MCV 88 87 88 MCH 29.8 29.9 30.0 MCHC 33.9 34.4 34.0 RDW 13.4 13.4 13.4 Plt Count 147 L 130 L 122 L 01/31/19 12:43 WBC 6.5 RBC 4.65 Hgb 13.9 Hct 41.3 MCV 89 MCH 29.9 MCHC 33.7 RDW 13.5 Plt Count 135 L 01/29/19 01/29/19 01/29/19 16:36 16:36 22:53 Creatine Kinase 64 62 CK-MB (CK-2) 2.36 NT-Pro-B Natriuret Pep 01/29/19 01/30/19 01/30/19 22:53 04:40 04:40 Creatine Kinase 55 CK-MB (CK-2) 2.24 2.11 NT-Pro-B Natriuret Pep 01/30/19 04:40 Creatine Kinase CK-MB (CK-2) NT-Pro-B Natriuret Pep 225 Impressions: Chest CT 01/29/19 00:00 IMPRESSION: Nonspecific ground-glass attenuation in the dependent portions of the lower lobes could be atelectasis or early pneumonia. No infiltrate. Abdomen/Pelvis CT 01/29/19 11:29 IMPRESSION: 1. There is some fluid in the colon. Correlate for enteritis. 2. Limited ground-glass infiltrate in the lower lobes. Nonspecific finding. May indicate chronic interstitial changes, interstitial edema, or atypical infectious/ inflammatory process. Chest X-Ray 01/29/19 14:24 IMPRESSION: 1. Question of right scapula versus possible mass projecting over the periphery of the right upper lung. Repeat examination with better positioning for re-evaluation. Status: Imported from PACS Assessment and Plan - Diagnosis (1) GI bleed Is this a current diagnosis for this admission?: Yes Plan: Lower GI bleed - BRB per rectum today. Previously watery, black tarry stool. Very foul odor Exacerbated by anticoagulation use Colonoscopy 1 yr ago showed 2 flat polyps that was managed by GI at [facility] (outpatient) Hgb 13, has remained stable, will re-check with AM labs Transfuse if Hgb < 8 Eliquis currently on hold Colonoscopy does not identify a source of bleeding. Presumed to be hemorrhoids. (2) Atrial fibrillation Is this a current diagnosis for this admission?: No Plan: History of paroxysmal atrial fibrillation on Eliquis [employer] pacemaker/defibrillator placed last year Currently rate controlled in NSR Continue home dose metoprolol succinate (3) Diabetes Qualifiers: Diabetes mellitus type: type 2 Is this a current diagnosis for this admission?: Yes Plan: PMH of type 2 diabetes mellitus. Hgb A1c 6.4 Accu-Cheks before meals at bedtime Humalog sliding scale insulin D5 half-normal to prevent hypoglycemic episodes. (4) Hypotension Qualifiers: Hypotension type: unspecified hypotension type Qualified Code(s): I95.9 - Hypotension, unspecified Is this a current diagnosis for this admission?: Yes Plan: Resolved. Patient is NORMOtensive today Will resume home anti-HTN medications Secondary to diarrhea (volume loss) and lower GI bleed (blood loss) Continue IV fluids D5 half-normal saline at 80 cc/h. Trending CBC, will transfuse if Hgb < 8.0 (5) Pneumonia Is this a current diagnosis for this admission?: Yes Plan: CT scan of the abdomen showed opacifications in the lung malhotra there is a question about pneumonia Empirically treated with Levaquin and rocephin D/c antibiotics today, infection is unlikely Afebrile. No leukocytosis. - Time Time Spent with patient: 15-24 minutes Medications reviewed and adjusted accordingly: Yes Anticipated discharge: Home Within: within 48 hours - Inpatient Certification Based on my medical assessment, after consideration of the patient's com orbidities, presenting symptoms, or acuity I expect that the services needed warrant INPATIENT care.: Yes I certify that my determination is in accordance with my understanding of Medicare's requirements for reasonable and necessary INPATIENT services [42 CFR 412.3e].: Yes Medical Necessity: Risk of Complication if Not Cared For in Hospital
[2019-01-31] MEDS: ATORVASTATIN CALCIUM 40 MG TABLET PO SCH (21:34)
[2019-02-01] MEDS: GABAPENTIN 300 MG CAPSULE PO SCH ×3 (06:17→21:47)
[2019-02-01] MEDS: DEXTROSE 5%-1/2 NORMAL SALINE 1,000 ML IV PRN ×2 (06:19→16:48)
[2019-02-01 06:33] LABS: HEMATOCRIT 37.7 % (37.9-51.0); HEMOGLOBIN 12.8 g/dL (13.5-17.0); MEAN CORPUSCULAR HEMOGLOBIN 29.6 pg (27.0-33.4); MEAN CORPUSCULAR HGB CONC 34.1 g/dL (32.0-36.0); MEAN CORPUSCULAR VOLUME 87 fl (80-97); PLATELET COUNT 121 10^3/uL (150-450); RED BLOOD COUNT 4.33 10^6/uL (4.35-5.55); RED CELL DISTRIBUTION WIDTH 13.8 % (11.5-14.0); WHITE BLOOD COUNT 6.1 10^3/uL (4.0-10.5)
[2019-02-01 06:54] LABS: ALANINE AMINOTRANSFERASE 26 U/L (21-72); ALBUMIN 3.2 g/dL (3.5-5.0); ALKALINE PHOSPHATASE 55 U/L (38-126); ANION GAP 6 (5-19); ASPARTATE AMINO TRANSFERASE 21 U/L (17-59); BILIRUBIN,DIRECT 0.2 mg/dL (0.0-0.4); BILIRUBIN,TOTAL 0.4 mg/dL (0.2-1.3); BLOOD UREA NITROGEN 3 mg/dL (7-20); CARBON DIOXIDE 29 mmol/L (22-30); CHLORIDE 105 mmol/L (98-107); GLUCOSE 168 mg/dL (75-110); POTASSIUM 3.6 mmol/L (3.6-5.0); TOTAL PROTEIN 5.7 g/dL (6.3-8.2)
[2019-02-01] MEDS ORDERED: (PENDING PHARMACY ID) (Metoprolol Succinate [Metoprolol Succinate] 100 MG) PO SCH (08:00)
[2019-02-01] MEDS: INSULIN LISPRO 100 UNIT/ML 3 ML VIAL SUBCUT SCH ×4 (08:19→21:47)
[2019-02-01] MEDS: METOPROLOL SUCCINATE 50 MG TAB.SR.24H PO SCH ×2 (08:19→17:42)
[2019-02-01] MEDS: OMEGA-3 ACID ETHYL ESTERS 1 GM CAPSULE PO SCH ×2 (09:24→21:47)
[2019-02-01] MEDS: SACUBITRIL/VALSARTAN 97 MG/103 MG TABLET PO SCH ×2 (09:24→17:42)
[2019-02-01] MEDS: CHOLECALCIFEROL (D3) 1,000 UNIT TABLET PO SCH (09:25)
[2019-02-01] MEDS: ISOSORBIDE MONONITRATE 30 MG TAB.ER.24H PO SCH (09:25)
[2019-02-01] MEDS: FINASTERIDE 5 MG TABLET PO SCH (09:25)
[2019-02-01] MEDS: FAMOTIDINE INJ/PF 20 MG/2 ML SDV IV SCH ×2 (09:25→21:47)
[2019-02-01] MEDS ORDERED: ISOSORBIDE MONONITRATE 30 MG TAB.ER.24H PO SCH (10:00)
[2019-02-01] MEDS ORDERED: NORMAL SALINE 250 ML IV PRN ×2 (10:30)
[2019-02-01] MEDS: PRAMIPEXOLE DI-HCL 0.5 MG TABLET PO SCH ×2 (13:40→21:47)
--- NOTE | 2019-02-01 16:54 | PDOC PROGRESS REPORT ---
Subjective Progress Note for:: 02/01/19 Subjective:: 83 y.o. M with a PMH of AFIB (on apixaban), OK x 2, HTN, AICD in place. He presented with 4 days of N/V and loose/black stools. The patient was admitted to the hospitalist service for suspected colitis. The patient was seen this morning on rounds. He had a BM this morning that nursing staff reports is bright red. Patient denies abdominal pain or nausea. Blood pressure has greatly improved today, increased from 90-->140. Colonoscopy done yesterday was relatively normal. Unfortunately, overnight the patient had multiple episodes of rectal bleeding. In particular, at 0300 the patient passed multiple clots in the toilet while having a BM. He experienced a similar episode this afternoon, passing multiple clots in the toilet while having a BM. His Hgb has drifted from 15 (peak)-->12 (today). Vital signs remain stable. Discussed patient's case with [facility] who recommend hemorrhoid banding but do not feel that the patient meets criteria for transfer. Consulted with Dr. Mcbride, he recommended transfusing a unit of platelets today. If patient is still experiencing rectal bleeding will take to the OR tomorrow for hemorrhoid banding. Reason For Visit: COLITIS Physical Exam Vital Signs: Temp Pulse Resp BP Pulse Ox 97.5 F 62 18 137/60 H 99 02/01/19 03:49 02/01/19 14:00 02/01/19 03:49 02/01/19 03:49 02/01/19 03:49 Intake & Output 01/31/19 02/01/19 02/02/19 06:59 06:59 06:59 Intake Total 2516 4167 Balance 2516 4167 Weight 81.6 kg 81.7 kg General appearance: PRESENT: no acute distress, well-developed, well-nourished Head exam: PRESENT: atraumatic, normocephalic Eye exam: PRESENT: conjunctiva pink, EOMI, PERRLA. ABSENT: scleral icterus Ear exam: PRESENT: normal external ear exam Mouth exam: PRESENT: moist, tongue midline Neck exam: PRESENT: full ROM. ABSENT: carotid bruit, JVD, lymphadenopathy, thyromegaly Respiratory exam: PRESENT: clear to auscultation samuel, symmetrical, unlabored. ABSENT: rales, rhonchi, wheezes Cardiovascular exam: PRESENT: RRR. ABSENT: diastolic murmur, rubs, systolic murmur Pulses: PRESENT: normal radial pulses, normal dorsalis pedis pul Vascular exam: PRESENT: normal capillary refill GI/Abdominal exam: PRESENT: normal bowel sounds, soft. ABSENT: distended, guarding, mass, organolmegaly, rebound, tenderness Rectal exam: PRESENT: bloody stool Extremities exam: PRESENT: full ROM. ABSENT: calf tenderness, clubbing, pedal edema Musculoskeletal exam: PRESENT: ambulatory, full ROM Neurological exam: PRESENT: alert, awake, oriented to person, oriented to place, oriented to time, oriented to situation Psychiatric exam: PRESENT: appropriate affect, normal mood Skin exam: PRESENT: dry, intact, warm. ABSENT: cyanosis, rash Results Laboratory Results: 02/01/19 06:10 02/01/19 06:10 02/01/19 02/01/19 02/01/19 06:10 06:10 11:39 WBC 6.1 RBC 4.33 L Hgb 12.8 L Hct 37.7 L MCV 87 MCH 29.6 MCHC 34.1 RDW 13.8 Plt Count 121 L Sodium 140.0 Potassium 3.6 Chloride 105 Carbon Dioxide 29 Anion Gap 6 BUN 3 L Creatinine 0.74 Est GFR ( Amer) > 60 Est GFR (Non-Af Amer) > 60 Glucose 168 H Calcium 9.0 Total Bilirubin 0.4 AST 21 ALT 26 Alkaline Phosphatase 55 Total Protein 5.7 L Albumin 3.2 L Blood Type A POSITIVE 01/29/19 11:35 Stool - Stool - Final 01/29/19 11:35 Stool - Stool Stool Culture - Final NO SALMONELLA, SHIGELLA, CAMPYLOBACTER, OR E.COLI 0157 RECOVERED. NEGATIVE FOR SHIGA TOXINS 1&2. 01/29/19 01/29/19 01/29/19 16:36 16:36 22:53 Creatine Kinase 64 62 CK-MB (CK-2) 2.36 NT-Pro-B Natriuret Pep 01/29/19 01/30/19 01/30/19 22:53 04:40 04:40 Creatine Kinase 55 CK-MB (CK-2) 2.24 2.11 NT-Pro-B Natriuret Pep 01/30/19 04:40 Creatine Kinase CK-MB (CK-2) NT-Pro-B Natriuret Pep 225 Impressions: Chest CT 01/29/19 00:00 IMPRESSION: Nonspecific ground-glass attenuation in the dependent portions of the lower lobes could be atelectasis or early pneumonia. No infiltrate. Abdomen/Pelvis CT 01/29/19 11:29 IMPRESSION: 1. There is some fluid in the colon. Correlate for enteritis. 2. Limited ground-glass infiltrate in the lower lobes. Nonspecific finding. May indicate chronic interstitial changes, interstitial edema, or atypical infectious/ inflammatory process. Chest X-Ray 01/29/19 14:24 IMPRESSION: 1. Question of right scapula versus possible mass projecting over the periphery of the right upper lung. Repeat examination with better positioning for re-evaluation. Status: Imported from PACS Assessment and Plan - Diagnosis (1) GI bleed Is this a current diagnosis for this admission?: Yes Plan: Lower GI bleed - BRB per rectum today. Previously watery, black tarry stool. Very foul odor Exacerbated by anticoagulation use Colonoscopy 1 yr ago showed 2 flat polyps that was managed by GI at [facility] (outpatient) Hgb 12, has remained stable, will re-check with AM labs Transfuse if Hgb < 8 Eliquis currently on hold 01/31/2018 Colonoscopy does not identify a source of bleeding. Presumed to be hemorrhoids. Transfuse 1 U platelets in hopes of stopping bleeding, if bleeding continues, may transfuse 2nd unit. If bleeding still persists, surgery will take patient to OR tomorrow for hemorrhoid banding (2) Atrial fibrillation Is this a current diagnosis for this admission?: No Plan: History of paroxysmal atrial fibrillation on Eliquis Medtronic pacemaker/defibrillator placed last year Currently rate controlled in NSR Continue home dose metoprolol succinate Discussed patient's current condition with Dr. Tisha Ovalle ([facility] He agreed that Eliquis should remain on hold after the patient is discharged, he should not be instructed to resume taking the medication. The patient's cardiology team will decide when/if he needs to restart anticoagulation for paroxysmal AFIB. (3) Diabetes Qualifiers: Diabetes mellitus type: type 2 Is this a current diagnosis for this admission?: Yes Plan: PMH of type 2 diabetes mellitus. Hgb A1c 6.4 Accu-Cheks before meals at bedtime Humalog sliding scale insulin D5 half-normal to prevent hypoglycemic episodes. (4) Hypotension Qualifiers: Hypotension type: unspecified hypotension type Qualified Code(s): I95.9 - Hypotension, unspecified Is this a current diagnosis for this admission?: Yes Plan: Resolved. Patient is NORMOtensive today Continue anti-HTN medications Secondary to diarrhea (volume loss) and lower GI bleed (blood loss) Continue IV fluids D5 half-normal saline at 80 cc/h. Trending CBC, will transfuse if Hgb < 8.0 (5) Pneumonia Is this a current diagnosis for this admission?: Yes Plan: CT scan of the abdomen showed opacifications in the lung malhotra there is a question about pneumonia Empirically treated with Levaquin and rocephin D/c antibiotics yesterday, infection is unlikely Afebrile. No leukocytosis. - Time Time Spent with patient: 15-24 minutes Medications reviewed and adjusted accordingly: Yes Anticipated discharge: Home Within: within 72 hours - Inpatient Certification Based on my medical assessment, after consideration of the patient's comorbidities, presenting symptoms, or acuity I expect that the services needed warrant INPATIENT care.: Yes I certify that my determination is in accordance with my understanding of Medicare's requirements for reasonable and necessary INPATIENT services [42 CFR 412.3e].: Yes Medical Necessity: Significant Comorbidiites Make Outpatient Treatment Too R isky, Risk of Complication if Not Cared For in Hospital
[2019-02-01] MEDS: DOXAZOSIN MESYLATE 1 MG TABLET PO SCH (17:43)
[2019-02-01] MEDS ORDERED: METOPROLOL SUCCINATE 50 MG PO SCH (18:00)
[2019-02-01 20:21] LABS: HEMATOCRIT 36.9 % (37.9-51.0); HEMOGLOBIN 12.5 g/dL (13.5-17.0); MEAN CORPUSCULAR VOLUME 88 fl (80-97); PLATELET COUNT 152 10^3/uL (150-450); RED BLOOD COUNT 4.19 10^6/uL (4.35-5.55); RED CELL DISTRIBUTION WIDTH 13.4 % (11.5-14.0); WHITE BLOOD COUNT 10.4 10^3/uL (4.0-10.5)
[2019-02-01] MEDS: ATORVASTATIN CALCIUM 40 MG TABLET PO SCH (21:47)
[2019-02-02] MEDS: DEXTROSE 5%-1/2 NORMAL SALINE 1,000 ML IV PRN ×2 (02:26→13:07)
[2019-02-02] MEDS: GABAPENTIN 300 MG CAPSULE PO SCH ×3 (05:43→22:05)
[2019-02-02 05:56] LABS: HEMATOCRIT 36.3 % (37.9-51.0); HEMOGLOBIN 12.6 g/dL (13.5-17.0); MEAN CORPUSCULAR HEMOGLOBIN 30.1 pg (27.0-33.4); MEAN CORPUSCULAR HGB CONC 34.8 g/dL (32.0-36.0); MEAN CORPUSCULAR VOLUME 87 fl (80-97); PLATELET COUNT 137 10^3/uL (150-450); RED BLOOD COUNT 4.19 10^6/uL (4.35-5.55); RED CELL DISTRIBUTION WIDTH 13.1 % (11.5-14.0); WHITE BLOOD COUNT 7.1 10^3/uL (4.0-10.5)
[2019-02-02 06:21] LABS: ALANINE AMINOTRANSFERASE 23 U/L (21-72); ALBUMIN 3.1 g/dL (3.5-5.0); ALKALINE PHOSPHATASE 54 U/L (38-126); ANION GAP 7 (5-19); ASPARTATE AMINO TRANSFERASE 21 U/L (17-59); BILIRUBIN,DIRECT 0.3 mg/dL (0.0-0.4); BILIRUBIN,TOTAL 0.6 mg/dL (0.2-1.3); BLOOD UREA NITROGEN 2 mg/dL (7-20); CALCIUM 8.5 mg/dL (8.4-10.2); CARBON DIOXIDE 29 mmol/L (22-30); CHLORIDE 104 mmol/L (98-107); GLUCOSE 135 mg/dL (75-110); PHOSPHORUS 3.6 mg/dL (2.5-4.5); POTASSIUM 3.6 mmol/L (3.6-5.0); SODIUM 139.7 mmol/L (137-145); TOTAL PROTEIN 5.3 g/dL (6.3-8.2)
[2019-02-02] MEDS: METOPROLOL SUCCINATE 50 MG TAB.SR.24H PO SCH ×2 (08:42→17:28)
[2019-02-02] MEDS: INSULIN LISPRO 100 UNIT/ML 3 ML VIAL SUBCUT SCH ×4 (08:42→22:06)
[2019-02-02] MEDS: OMEGA-3 ACID ETHYL ESTERS 1 GM CAPSULE PO SCH ×2 (09:23→22:05)
[2019-02-02] MEDS: SACUBITRIL/VALSARTAN 97 MG/103 MG TABLET PO SCH ×2 (09:23→17:29)
[2019-02-02] MEDS: CHOLECALCIFEROL (D3) 1,000 UNIT TABLET PO SCH (09:23)
[2019-02-02] MEDS: FINASTERIDE 5 MG TABLET PO SCH (09:23)
[2019-02-02] MEDS: ISOSORBIDE MONONITRATE 30 MG TAB.ER.24H PO SCH (09:23)
[2019-02-02] MEDS: FAMOTIDINE INJ/PF 20 MG/2 ML SDV IV SCH ×2 (09:23→22:06)
[2019-02-02] MEDS: PRAMIPEXOLE DI-HCL 0.5 MG TABLET PO SCH ×2 (13:07→22:05)
--- NOTE | 2019-02-02 16:25 | PDOC PROGRESS REPORT ---
Subjective Progress Note for:: 02/02/19 Subjective:: 83 y.o. M with a PMH of AFIB (on apixaban), PR x 2, HTN, AICD in place. He presented with 4 days of N/V and loose/black stools. The patient was admitted to the hospitalist service for suspected colitis. Colonoscopy completed 2 days ago; did not find. Patient was seen on morning rounds. He was found resting in bed comfortably on room air. He reports that he had 3, small-volume, dark mucus stools overnight with no thuan blood or blood clots. Overall, patient reports that he is feeling much better and denies ever, chills, chest pain, palpitations, dyspnea, ort hopnea, abdominal pain, nausea vomiting and diarrhea. He asks to have his diet advanced today. No other questions or concerns at this time. No concerns per nursing. Reason For Visit: COLITIS Physical Exam Vital Signs: Temp Pulse Resp BP Pulse Ox 97.6 F 55 L 18 129/69 H 91 L 02/02/19 15:12 02/02/19 15:12 02/02/19 15:12 02/02/19 15:12 02/02/19 15:12 Intake & Output 02/01/19 02/02/19 02/03/19 06:59 06:59 06:59 Intake Total 4167 3775 1000 Balance 4167 3775 1000 Weight 81.7 kg 82.8 kg General appearance: PRESENT: no acute distress, cooperative, well-developed, well-nourished Head exam: PRESENT: atraumatic, normocephalic Eye exam: PRESENT: conjunctiva pink, EOMI, PERRLA. ABSENT: scleral icterus Mouth exam: PRESENT: moist, tongue midline Neck exam: ABSENT: carotid bruit, JVD, lymphadenopathy, thyromegaly Respiratory exam: PRESENT: clear to auscultation samuel, symmetrical, unlabored. ABSENT: rales, rhonchi, wheezes Cardiovascular exam: PRESENT: RRR, +S1, +S2. ABSENT: diastolic murmur, rubs, systolic murmur Pulses: PRESENT: normal dorsalis pedis pul Vascular exam: PRESENT: normal capillary refill GI/Abdominal exam: PRESENT: distended, normal bowel sounds, soft. ABSENT: guarding, mass, organolmegaly, rebound, tenderness Rectal exam: PRESENT: deferred Extremities exam: PRESENT: full ROM. ABSENT: calf tenderness, clubbing, pedal edema Neurological exam: PRESENT: alert, awake, oriented to person, oriented to place, oriented to time, oriented to situation, CN II-XII grossly intact. ABSENT: motor sensory deficit Psychiatric exam: PRESENT: appropriate affect, normal mood. ABSENT: homicidal ideation, suicidal ideation Skin exam: PRESENT: dry, intact, warm. ABSENT: cyanosis, rash Results Laboratory Results: 02/02/19 05:25 02/02/19 05:25 02/01/19 02/01/19 02/02/19 11:39 20:08 05:25 WBC 10.4 7.1 RBC 4.19 L 4.19 L Hgb 12.5 L 12.6 L Hct 36.9 L 36.3 L MCV 88 87 MCH 30.0 30.1 MCHC 34.0 34.8 RDW 13.4 13.1 Plt Count 152 137 L Sodium Potassium Chloride Carbon Dioxide Anion Gap BUN Creatinine Est GFR ( Amer) Est GFR (Non-Af Amer) Glucose Calcium Phosphorus Magnesium Total Bilirubin AST ALT Alkaline Phosphatase Total Protein Albumin Blood Type A POSITIVE 02/02/19 05:25 WBC RBC Hgb Hct MCV MCH MCHC RDW Plt Count Sodium 139.7 Potassium 3.6 Chloride 104 Carbon Dioxide 29 Anion Gap 7 BUN 2 L Creatinine 0.73 Est GFR ( Amer) > 60 Est GFR (Non-Af Amer) > 60 Glucose 135 H Calcium 8.5 Phosphorus 3.6 Magnesium 1.4 L Total Bilirubin 0.6 AST 21 ALT 23 Alkaline Phosphatase 54 Total Protein 5.3 L Albumin 3.1 L Blood Type 01/29/19 01/29/19 01/29/19 16:36 16:36 22:53 Creatine Kinase 64 62 CK-MB (CK-2) 2.36 NT-Pro-B Natriuret Pep 01/29/19 01/30/19 01/30/19 22:53 04:40 04:40 Creatine Kinase 55 CK-MB (CK-2) 2.24 2.11 NT-Pro-B Natriuret Pep 01/30/19 04:40 Creatine Kinase CK-MB (CK-2) NT-Pro-B Natriuret Pep 225 Impressions: Chest CT 01/29/19 00:00 IMPRESSION: Nonspecific ground-glass attenuation in the dependent portions of the lower lobes could be atelectasis or early pneumonia. No infiltrate. Abdomen/Pelvis CT 01/29/19 11:29 IMPRESSION: 1. There is some fluid in the colon. Correlate for enteritis. 2. Limited ground-glass infiltrate in the lower lobes. Nonspecific finding. May indicate chronic interstitial changes, interstitial edema, or atypical infectious/ inflammatory process. Chest X-Ray 01/29/19 14:24 IMPRESSION: 1. Question of right scapula versus possible mass projecting over the periphery of the right upper lung. Repeat examination with better positioning for re-evaluation. Assessment and Plan - Diagnosis (1) GI bleed Is this a current diagnosis for this admission?: Yes Plan: Lower GI bleed - BRB per rectum with blood clots; appears to have resolved. Exacerbated by anticoagulation use Colonoscopy 1 yr ago showed 2 flat polyps that was managed by GI at [facility] (outpatient) Hgb 12, has remained stable Transfuse if Hgb < 8 Eliquis currently on hold 01/31/2018 Colonoscopy does not identify a source of bleeding. Presumed to be hemorrhoids. Status post 1 unit of platelets. Discussed with surgery today; clinically the patient is improved with decreased stooling and no thuan blood or clots today. Hemoglobin and vital signs remain stable. We will advance diet cautiously and continue to observe overnight. If vital signs and hemoglobin are stable in the morning; will discharged home with outpatient GI follow-up. (2) Atrial fibrillation Is this a current diagnosis for this admission?: No Plan: History of paroxysmal atrial fibrillation on Eliquis Medtronic pacemaker/defibrillator placed last year Currently rate controlled in NSR Continue home dose metoprolol succinate The previous provider discussed patient's admission with Dr. Tisha Ovalle ([facility]). He agreed that Eliquis should remain on hold after the patient is discharged, he should not be instructed to resume taking the medication. The patient's cardiology team will decide when/if he needs to restart anticoagulation for paroxysmal AFIB. (3) Diabetes Qualifiers: Diabetes mellitus type: type 2 Is this a current diagnosis for this admission?: Yes Plan: PMH of type 2 diabetes mellitus. Hgb A1c 6.4 Accu-Cheks before meals at bedtime Humalog sliding scale insulin (4) Hypotension Qualifiers: Hypotension type: unspecified hypotension type Qualified Code(s): I95.9 - Hypotension, unspecified Is this a current diagnosis for this admission?: Yes Plan: Resolved. Patient is NORMOtensive today Continue anti-HTN medications Secondary to diarrhea (volume loss) and lower GI bleed (blood loss) Trending CBC, will transfuse if Hgb < 8.0 Encourage p.o. fluids, out of bed for meals, ambulate in the hallways with assistance (5) Pneumonia Is this a current diagnosis for this admission?: Yes Plan: Ruled out. CT scan of the abdomen showed opacifications in the lung malhotra there is a question about pneumonia Empirically placed on Levaquin and rocephin; discontinued 01/31/2019 - Time Time Spent with patient: 15-24 minutes Medications reviewed and adjusted accordingly: Yes Anticipated discharge: Home Within: within 24 hours
[2019-02-02] MEDS: DOXAZOSIN MESYLATE 1 MG TABLET PO SCH (17:28)
[2019-02-02] MEDS: ATORVASTATIN CALCIUM 40 MG TABLET PO SCH (22:05)
[2019-02-03] MEDS: GABAPENTIN 300 MG CAPSULE PO SCH (06:32)
[2019-02-03 06:37] LABS: HEMOGLOBIN 12.4 g/dL (13.5-17.0); MEAN CORPUSCULAR HGB CONC 34.5 g/dL (32.0-36.0); MEAN CORPUSCULAR VOLUME 87 fl (80-97); PLATELET COUNT 131 10^3/uL (150-450); RED BLOOD COUNT 4.15 10^6/uL (4.35-5.55); RED CELL DISTRIBUTION WIDTH 13.4 % (11.5-14.0); WHITE BLOOD COUNT 6.5 10^3/uL (4.0-10.5)
[2019-02-03] MEDS: METOPROLOL SUCCINATE 50 MG TAB.SR.24H PO SCH (07:53)
[2019-02-03] MEDS: INSULIN LISPRO 100 UNIT/ML 3 ML VIAL SUBCUT SCH (07:53)
[2019-02-03] MEDS: FINASTERIDE 5 MG TABLET PO SCH (09:46)
[2019-02-03] MEDS: FAMOTIDINE INJ/PF 20 MG/2 ML SDV IV SCH (09:46)
[2019-02-03] MEDS: SACUBITRIL/VALSARTAN 97 MG/103 MG TABLET PO SCH (09:46)
[2019-02-03] MEDS: OMEGA-3 ACID ETHYL ESTERS 1 GM CAPSULE PO SCH (09:46)
[2019-02-03] MEDS: ISOSORBIDE MONONITRATE 30 MG TAB.ER.24H PO SCH (09:46)
[2019-02-03] MEDS: CHOLECALCIFEROL (D3) 1,000 UNIT TABLET PO SCH (09:46)
[2019-02-03 10:10] VITALS: BP 148/60
--- NOTE | 2019-02-05 20:59 | PDOC DISCHARGE SUMMARY ---
General - Admit/Disc Date/PCP Admission Date/Primary Care Provider: 01/29/19 14:30 TANVIR CARTY MD Discharge Date: 02/03/19 - Discharge Diagnosis (1) GI bleed Is this a current diagnosis for this admission?: Yes Summary: Resolved. Lower GI bleed - BRBPR with blood clots. Colonoscopy 1 yr ago showed 2 flat polyps that was managed by GI at [facility] (outpatient) Colonoscopy (this admission) does not identify a source of bleeding. Presumed to be hemorrhoids. Patient was admitted to the medical floor on continuous cardiac telemetry. The patient's Eliquis was placed on hold and he was provided 1 unit PLT for reversal. Colonoscopy did not identify source of bleeding. Patient was monitored for an additional 24 hours with resolution of his rectal bleeding, and stabilization of hemoglobin and vital signs. The patient's diet was advanced to regular; which he continued to tolerate well. The patient was discharged to home in stable condition. He is advised to follow up with his primary care provider within 1 week. He is instructed to follow up with his GI provider and Scale Balancer as scheduled. Hold Eliquis until instructed to resume by graduate assistant athletic trainer. Return to the emergency department as needed for concerning symptoms. (2) Atrial fibrillation Is this a current diagnosis for this admission?: Yes Summary: History of paroxysmal atrial fibrillation on Eliquis Medtronic pacemaker/defibrillator placed last year Currently rate controlled in NSR Continue home dose metoprolol succinate Discussed w/ patients graduate assistant athletic trainer, Dr. Tisha Ovalle ([facility]); recommends Eliquis should remain on hold after the patient is discharged. The patient's cardiology team will decide when/if he needs to restart anticoagulation for paroxysmal AFIB. (3) Diabetes Is this a current diagnosis for this admission?: Yes Summary: PMH of type 2 diabetes mellitus. Hgb A1c 6.4% Continue consistent carb diet. (4) Hypotension Is this a current diagnosis for this admission?: Yes Summary: Resolved. Patient is NORMOtensive today Secondary to diarrhea (volume loss) and lower GI bleed (blood loss) Home dose antihypertensives have been resumed. Encourage p.o. fluids, out of bed for meals, ambulate in the hallways with assistance (5) Pneumonia Is this a current diagnosis for this admission?: Yes Summary: Ruled out. CT scan of the abdomen showed opacifications in the lung malhotra; questionable for pneumonia Empirically placed on Levaquin and rocephin; discontinued 01/31/2019 - Additional Information Resuscitation Status: Full Code Discharge Diet: Cardiac, Diabetic Discharge Activity: Activity As Tolerated, Balance Activity w/Rest, Slowly Increase Activity, Walk Frequently Prescriptions: Docusate Sodium [Colace] 100 mg PO DAILY #30 capsule Home Medications: Aspirin [Ecotrin] 81 mg PO DAILY 01/29/19 Cholecalciferol (Vitamin D3) [Vitamin D3] 2,000 unit PO DAILY 01/29/19 Finasteride [Proscar 5 mg Tablet] 5 mg PO DAILY 01/29/19 Gabapentin 600 mg PO TID 01/29/19 Isosorbide Mononitrate [Imdur 30 mg Tablet.er] 30 mg PO DAILY 01/29/19 Lorazepam [Ativan 1 mg Tablet] 1 mg PO QPMP PRN 01/29/19 Metoprolol Succinate 50 mg PO QPM 01/29/19 Metoprolol Succinate 100 mg PO QAM 01/29/19 [place]-3 Acid Ethyl Esters [Lovaza 1 gm Capsule] 2 gm PO BID 01/29/19 Pramipexole Di-HCl [Mirapex 0.5 mg Tablet] 0.5 mg PO 1400,2000 01/29/19 Rosuvastatin Calcium 20 mg PO DAILY 01/29/19 Sacubitril/Valsartan [Entresto 97 mg/103 mg Tablet] 1 tab PO BID 01/29/19 Sitagliptin Phosphate [Januvia 50 mg Tablet] 50 mg PO DAILY 01/29/19 Terazosin HCl 1 mg PO QPM 01/29/19 Acetaminophen [Tylenol 325 mg Tablet] 650 mg PO Q4HP PRN tablet 02/03/19 Docusate Sodium [Colace] 100 mg PO DAILY #30 capsule 02/03/19 Pramipexole Di-HCl [Mirapex 0.5 mg Tablet] 0.5 mg PO BID@1400,1999 tablet 02/03/19 History of Present Illness History of Present Illness: Per H&P by Dr. Soliz:MADELINE FISH is a 83 year old male with history of atrial fibrillation, has a pacemaker defibrillator, diabetes, hypertension, hyperlipidemia history of coronary artery disease status post bypass came to the emergency room with complaints of nausea vomiting associated with mild abdominal pain and loose stools with bright-colored blood for the last 3 to 4 days. Denies any fever. Complaining of cough which was chronic. Denies any recent medication change denies any recent antibiotic use. Also complaining of dizziness when always tried to stand up from sitting patient is feeling dizzy and lightheaded he has to hold onto the webster or railings to hold on. Is any headaches. denies any problems with urination. Went to talk to the patient in the emergency room he wants to be full code. pt agreed to stay in the hospital. Physical Exam Vital Signs: Temp Pulse Resp BP Pulse Ox 98.1 F 57 L 18 148/60 H 97 02/03/19 10:02/03/19 10:09 02/03/19 10:02/03/19 10:02/03/19 10:09 General appearance: PRESENT: no acute distress, cooperative, well-developed, well-nourished - overweight Head exam: PRESENT: atraumatic, normocephalic Eye exam: PRESENT: conjunctiva pink, EOMI, PERRLA. ABSENT: scleral icterus Mouth exam: PRESENT: moist, tongue midline Neck exam: ABSENT: carotid bruit, JVD, lymphadenopathy, thyromegaly Respiratory exam: PRESENT: clear to auscultation samuel, symmetrical, unlabored. ABSENT: rales, rhonchi, wheezes Cardiovascular exam: PRESENT: RRR - NSR, +S1, +S2. ABSENT: diastolic murmur, rubs, systolic murmur Pulses: PRESENT: normal dorsalis pedis pul Vascular exam: PRESENT: normal capillary refill GI/Abdominal exam: PRESENT: normal bowel sounds, soft. ABSENT: distended, guarding, mass, organolmegaly, rebound, tenderness Rectal exam: PRESENT: deferred Extremities exam: PRESENT: full ROM. ABSENT: calf tenderness, clubbing, pedal edema Neurological exam: PRESENT: alert, awake, oriented to person, oriented to place, oriented to time, oriented to situation, CN II-XII grossly intact. ABSENT: motor sensory deficit Psychiatric exam: PRESENT: appropriate affect, normal mood. ABSENT: homicidal ideation, suicidal ideation Skin exam: PRESENT: dry, intact, warm. ABSENT: cyanosis, rash Results Laboratory Results: 02/03/19 06:25 02/02/19 05:25 01/29/19 01/29/1919 16:36 16:36 22:53 Creatine Kinase 64 62 CK-MB (CK-2) 2.36 NT-Pro-B Natriuret Pep 01/29/19 01/30/19 01/30/19 22:53 04:40 04:40 Creatine Kinase 55 CK-MB (CK-2) 2.24 2.11 NT-Pro-B Natriuret Pep 01/30/19 04:40 Creatine Kinase CK-MB (CK-2) NT-Pro-B Natriuret Pep 225 Impressions: Chest CT 01/29/19 00:00 IMPRESSION: Nonspecific ground-glass attenuation in the dependent portions of the lower lobes could be atelectasis or early pneumonia. No infiltrate. Abdomen/Pelvis CT 01/29/19 11:29 IMPRESSION: 1. There is some fluid in the colon. Correlate for enteritis. 2. Limited ground-glass infiltrate in the lower lobes. Nonspecific finding. May indicate chronic interstitial changes, interstitial edema, or atypical infectious/ inflammatory process. Chest X-Ray 01/29/19 14:24 IMPRESSION: 1. Question of right scapula versus possible mass projecting over the periphery of the right upper lung. Repeat examination with better positioning for re-evaluation. Qualifiers - * PATIENT BEING DISCHARGED WITH ANY OF THE FOLLOWING DIAGNOSIS: No Acute Heart Failure Is this a Heart Failure Patient?: No Plan Discharge Plan: Follow up with primary care provider within 1 week. Follow up with established Qa Auditor as scheduled; please call and notify them of your admission. Follow up with established Scale Balancer as scheduled; do NOT resume your Eliquis until directed to do so by graduate assistant athletic trainer. Take a stool softener daily, eat plenty of water, and stay hydrated to prevent constipation. Walk daily. Return to the emergency department as needed for any concerning symptoms. Time Spent: Greater than 30 Minutes
== END 2019-02-03 10:31 | disposition home or self-care (01) | DRG 377 ==
LOC: ER 10:16 → EH 14:30 → 3N 18:50
PROVIDERS: ADMIT Internal Medicine; ATTEND Internal Medicine
PROC: 30233R1 Transfusion of Nonautologous Platelets into Peripheral Vein, Percutaneous Approach (ICD-10-PCS; 2019-01-31)
PROC: 0DBG8ZZ Excision of Left Large Intestine, Via Natural or Artificial Opening Endoscopic (ICD-10-PCS; principal; 2019-01-31 08:30)
DX: K92.2 Gastrointestinal hemorrhage, unspecified (principal); J18.9 Pneumonia, unspecified organism; I95.9 Hypotension, unspecified; K63.5 Polyp of colon; K52.9 Noninfective gastroenteritis and colitis, unspecified; I10 Essential (primary) hypertension; E11.8 Type 2 diabetes mellitus with unspecified complications; I48.91 Unspecified atrial fibrillation; I25.2 Old myocardial infarction; Z95.0 Presence of cardiac pacemaker; Z79.01 Long term (current) use of anticoagulants; Z79.84 Long term (current) use of oral hypoglycemic drugs; Z79.82 Long term (current) use of aspirin; Z79.899 Other long term (current) drug therapy
CPT/HCPCS: 36415; 36430; 45388; 71045; 71250; 74177; 80053; 80061; 81001; 82272; 82550; 82553; 82962; 83036; 83605; 83735; 83880; 84100; 84443; 85025; 85027; 85610; 85730; 86900; 86901; 87040; 87045; 87205; 87493; 89055; 96360; 96361; 99291; J0171; J0696; J1200; J1610; J1815; J1956; J2250; J2310; J2405; J3010; J3490; J7120; P9035; S0028

== ENCOUNTER → 2019-03-13 | Outpatient (CLI) | payer MEDICARE, OTHER ==
[2019-03-13 08:16] LABS: HEMATOCRIT 40.9 % (37.9-51.0); HEMOGLOBIN 13.8 g/dL (13.5-17.0); MEAN CORPUSCULAR HGB CONC 33.8 g/dL (32.0-36.0); MEAN CORPUSCULAR VOLUME 86 fl (80-97); PLATELET COUNT 142 10^3/uL (150-450); RED BLOOD COUNT 4.76 10^6/uL (4.35-5.55); RED CELL DISTRIBUTION WIDTH 13.6 % (11.5-14.0); WHITE BLOOD COUNT 7.8 10^3/uL (4.0-10.5)
[2019-03-13 08:31] LABS: ANION GAP 8 (5-19); BLOOD UREA NITROGEN 17 mg/dL (7-20); CALCIUM 9.4 mg/dL (8.4-10.2); CARBON DIOXIDE 30 mmol/L (22-30); CHLORIDE 100 mmol/L (98-107); GLUCOSE 143 mg/dL (75-110); POTASSIUM 4.6 mmol/L (3.6-5.0); SODIUM 138.1 mmol/L (137-145)
== END ==
LOC: LAB 07:48
PROVIDERS: ATTEND Internal Medicine Cardiovascular Disease
DX: K92.2 Gastrointestinal hemorrhage, unspecified (principal); I50.22 Chronic systolic (congestive) heart failure; R06.02 Shortness of breath; Z79.899 Other long term (current) drug therapy
CPT/HCPCS: 36415; 80048; 83880; 85027

== ENCOUNTER → 2019-08-07 | Outpatient (CLI) | payer MEDICARE, OTHER ==
[2019-08-07 09:43] LABS: ANION GAP 9 (5-19); BLOOD UREA NITROGEN 20 mg/dL (7-20); CALCIUM 9.7 mg/dL (8.4-10.2); CARBON DIOXIDE 28 mmol/L (22-30); CHLORIDE 103 mmol/L (98-107); GLUCOSE 128 mg/dL (75-110); POTASSIUM 4.5 mmol/L (3.6-5.0)
== END ==
LOC: OD 08:35
PROVIDERS: ATTEND Internal Medicine Cardiovascular Disease
DX: I50.22 Chronic systolic (congestive) heart failure (principal); R06.02 Shortness of breath; E83.42 Hypomagnesemia; E11.9 Type 2 diabetes mellitus without complications
CPT/HCPCS: 36415; 80048; 83735; 83880

== ENCOUNTER → 2019-09-10 | Outpatient (CLI) | payer MEDICARE, OTHER ==
[2019-09-10 09:52] LABS: ANION GAP 8 (5-19); CALCIUM 9.6 mg/dL (8.4-10.2); CARBON DIOXIDE 31 mmol/L (22-30); CHLORIDE 100 mmol/L (98-107); GLUCOSE 127 mg/dL (75-110); POTASSIUM 4.2 mmol/L (3.6-5.0)
[2019-09-10 10:00] LABS: BLOOD UREA NITROGEN 16 mg/dL (7-20)
== END ==
LOC: OD 08:15
PROVIDERS: ATTEND Internal Medicine Cardiovascular Disease
DX: I11.0 Hypertensive heart disease with heart failure (principal); I50.22 Chronic systolic (congestive) heart failure; E83.42 Hypomagnesemia; Z79.899 Other long term (current) drug therapy
CPT/HCPCS: 36415; 80048; 83735

== ENCOUNTER → 2020-01-04 | Outpatient (CLI) | payer MEDICARE, OTHER ==
[2020-01-04 09:59] LABS: ALBUMIN 4.4 g/dL (3.5-5.0); ALKALINE PHOSPHATASE 60 U/L (38-126); ANION GAP 7 (5-19); ASPARTATE AMINO TRANSFERASE 23 U/L (17-59); BILIRUBIN,DIRECT 0.1 mg/dL (0.0-0.4); BILIRUBIN,TOTAL 0.9 mg/dL (0.2-1.3); BLOOD UREA NITROGEN 24 mg/dL (7-20); CALCIUM 9.8 mg/dL (8.4-10.2); CARBON DIOXIDE 31 mmol/L (22-30); CHLORIDE 100 mmol/L (98-107); GLUCOSE 144 mg/dL (75-110); POTASSIUM 4.6 mmol/L (3.6-5.0); TOTAL PROTEIN 7.3 g/dL (6.3-8.2)
[2020-01-05 11:01] LABS: CHOLESTEROL 116.41 mg/dL (0-200); TRIGLYCERIDES 104 mg/dL (<150)
[2020-01-05 11:11] LABS: DIRECT LDL 43 mg/dL (<100)
== END ==
LOC: OD 08:34
PROVIDERS: ATTEND Internal Medicine Cardiovascular Disease
DX: I11.0 Hypertensive heart disease with heart failure (principal); I50.22 Chronic systolic (congestive) heart failure; R06.02 Shortness of breath; E78.2 Mixed hyperlipidemia; Z79.899 Other long term (current) drug therapy
CPT/HCPCS: 36415; 80048; 80061; 80076; 83735; 83880

== ENCOUNTER → 2020-02-07 | Outpatient (CLI) | payer MEDICARE, OTHER ==
[2020-02-07 10:53] LABS: ANION GAP 7 (5-19); BLOOD UREA NITROGEN 19 mg/dL (7-20); CALCIUM 9.3 mg/dL (8.4-10.2); CARBON DIOXIDE 32 mmol/L (22-30); CHLORIDE 96 mmol/L (98-107); GLUCOSE 137 mg/dL (75-110); POTASSIUM 4.7 mmol/L (3.6-5.0)
--- NOTE | 2020-02-07 12:52 | EKG REPORT ---
SEVERITY:- ABNORMAL ECG - SINUS BRADYCARDIA . ABNORMAL T, CONSIDER ISCHEMIA, LATERAL LEADS NO CHANGE : Confirmed by: Luis Davies MD 07-Feb-2020 12:52:09
== END ==
LOC: OD 09:35
PROVIDERS: ATTEND Internal Medicine Cardiovascular Disease
DX: I11.0 Hypertensive heart disease with heart failure (principal); I50.22 Chronic systolic (congestive) heart failure; E11.9 Type 2 diabetes mellitus without complications; R07.9 Chest pain, unspecified
CPT/HCPCS: 36415; 80048; 93005; 93010

== ENCOUNTER → 2020-04-17 | Outpatient (CLI) | payer MEDICARE, OTHER ==
[2020-04-17 10:26] LABS: BLOOD UREA NITROGEN 18 mg/dL (7-20); CALCIUM 9.7 mg/dL (8.4-10.2); GLUCOSE 127 mg/dL (75-110); POTASSIUM 4.9 mmol/L (3.6-5.0)
[2020-04-17 10:35] LABS: CARBON DIOXIDE 31 mmol/L (22-30); CHLORIDE 100 mmol/L (98-107)
[2020-04-17 10:37] LABS: ANION GAP 6 (5-19)
== END ==
LOC: OD 09:20
PROVIDERS: ATTEND Internal Medicine Cardiovascular Disease
DX: I11.0 Hypertensive heart disease with heart failure (principal); I50.22 Chronic systolic (congestive) heart failure; E83.42 Hypomagnesemia; Z79.899 Other long term (current) drug therapy
CPT/HCPCS: 36415; 80048; 83735; 83880

== ENCOUNTER → 2020-07-20 | Outpatient (CLI) | payer MEDICARE, OTHER ==
[2020-07-20 12:08] LABS: ALBUMIN 4.4 g/dL (3.5-5.0); ALKALINE PHOSPHATASE 56 U/L (38-126); ANION GAP 8 (5-19); ASPARTATE AMINO TRANSFERASE 30 U/L (17-59); BILIRUBIN,DIRECT 0.3 mg/dL (0.0-0.4); BILIRUBIN,TOTAL 0.9 mg/dL (0.2-1.3); BLOOD UREA NITROGEN 17 mg/dL (7-20); CALCIUM 9.9 mg/dL (8.4-10.2); CARBON DIOXIDE 32 mmol/L (22-30); CHLORIDE 100 mmol/L (98-107); CHOLESTEROL 130.89 mg/dL (0-200); GLUCOSE 123 mg/dL (75-110); POTASSIUM 4.7 mmol/L (3.6-5.0); TOTAL PROTEIN 7.3 g/dL (6.3-8.2); TRIGLYCERIDES 151 mg/dL (<150)
[2020-07-20 12:24] LABS: DIRECT LDL 40 mg/dL (<100)
[2020-07-20 13:01] LABS: VLDL CHOLESTEROL 30.2 mg/dL (10-31)
== END ==
LOC: OD 10:27
PROVIDERS: ATTEND Internal Medicine Cardiovascular Disease
DX: I11.0 Hypertensive heart disease with heart failure (principal); I50.22 Chronic systolic (congestive) heart failure; E78.2 Mixed hyperlipidemia; E11.9 Type 2 diabetes mellitus without complications; E83.42 Hypomagnesemia; I49.3 Ventricular premature depolarization; Z79.899 Other long term (current) drug therapy
CPT/HCPCS: 36415; 80048; 80061; 80076; 83036; 83735; 83880

== ENCOUNTER 2020-09-21 10:48 | Emergency (ER) | payer MEDICARE, OTHER ==
--- NOTE | 2020-09-21 11:05 | ER Document Report ---
ED Medical Screen (RME) - General Chief Complaint: Flu Symptoms Stated Complaint: COUGH,CONGESTION,HEADACHE Time Seen by Provider: 09/21/20 11:02 Primary Care Provider: TARAS CONCEPCION MD [Primary Care Provider] - Follow up as needed Mode of Arrival: Ambulatory Information source: Patient Notes: 85-year-old male presents to ED for [facility] nosebleeds cough no appetite decreased energy he is Covid positive. Blood pressure was 149/95 pulse was 64 temperature 97.8 O2 sat 9718 respirations I have asked the nurse to please put these vital signs in the computer for me. He does have a history of pneumonia cardiac cath cardiac past past surgery right shoulder surgery inguinal inguinal repair surgery he does have a history of 2 MIs cholesterol blood pressure char nary artery disease. He is today for the cough and congestion and flulike symptoms. I have greeted and performed a rapid initial assessment of this patient. A comprehensive ED assessment and evaluation of the patient, analysis of test results and completion of medical decision making process will be conducted by an additional ED providers. TRAVEL OUTSIDE OF THE [place] IN LAST 30 DAYS: No - Related Data Allergies/Adverse Reactions: phenytoin sodium [From Dilantin] Allergy (Mild, Verified 06/22/17 09:24) itching, rash quinidine [Quinidine] Allergy (Mild, Verified 06/22/17 09:24) itching, rash oxycodone [From Percocet] Adverse Reaction (Mild, Verified 06/22/17 09:24) RASH Past Medical History - Past Medical History Cardiac Medical History: 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, Hx Hypertension Denies: Hx Coronary Artery Disease Pulmonary Medical History: Reports: Hx Pneumonia Denies: Hx Asthma, Hx Bronchitis, Hx COPD Neurological Medical History: Reports: Hx Seizures - LAST ONE IN 1989. TOTAL OF 2 CLOSE TOGETHER. Denies: Hx Cerebrovascular Accident Endocrine Medical History: Reports: Hx Diabetes Mellitus Type 2 Renal/ Medical History: Denies: Hx Peritoneal Dialysis GI Medical History: Denies: Hx Hepatitis, Hx Hiatal Hernia, Hx Ulcer Musculoskeltal Medical History: Reports Hx Arthritis Infectious Medical History: Denies: Hx Hepatitis Past Surgical History: Reports: Hx Cardiac Surgery - Pacemaker/defibrillator, Hx Open Heart Surgery - BYPASS 1989,STENT 3 YEARS AGO. Denies: Hx Pacemaker - Immunizations Hx Diphtheria, Pertussis, Tetanus Vaccination: Yes Doctor's Discharge - Discharge Referrals: TARAS CONCEPCION MD [Primary Care Provider] - Follow up as needed
--- NOTE | 2020-09-21 11:32 | ER Document Report ---
ED General - General Chief Complaint: Cough Stated Complaint: COUGH,CONGESTION,HEADACHE Time Seen by Provider: 09/21/20 11:02 Primary Care Provider: TARAS CONCEPCION MD [Primary Care Provider] - Follow up in 1 week Mode of Arrival: Ambulatory TRAVEL OUTSIDE OF THE [place] IN LAST 30 DAYS: No - HPI Notes: 85-year-old male to the emergency department with complaints of persistent cough for the past 3 weeks. He tested positive for Covid about 8 days ago. He states that his is also sick and hospitalized and he is concerned that his cough has not gotten better. He would like to be x-rayed for pneumonia today. He denies any thuan shortness of breath, chest pain. He denies any abdominal pain, nausea, vomiting, diarrhea. He denies any headaches. He has not been taking anything for symptoms. He does have a significant past medical history for hypertension, AICD placement, CABG. - Related Data Allergies/Adverse Reactions: phenytoin sodium [From Dilantin] Allergy (Mild, Verified 06/22/17 09:24) itching, rash quinidine [Quinidine] Allergy (Mild, Verified 06/22/17 09:24) itching, rash oxycodone [From Percocet] Adverse Reaction (Mild, Verified 06/22/17 09:24) RASH Past Medical History - General Information source: Patient - Social History Smoking Status: Never Smoker Family History: Reviewed & Not Pertinent - Past Medical History Cardiac Medical History: 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, Hx Hypertension Denies: Hx Coronary Artery Disease Pulmonary Medical History: Reports: Hx Pneumonia Denies: Hx Asthma, Hx Bronchitis, Hx COPD Neurological Medical History: Reports: Hx Seizures - LAST ONE IN 1989. TOTAL OF 2 CLOSE TOGETHER. Denies: Hx Cerebrovascular Accident Endocrine Medical History: Reports: Hx Diabetes Mellitus Type 2 Renal/ Medical History: Denies: Hx Peritoneal Dialysis GI Medical History: Denies: Hx Hepatitis, Hx Hiatal Hernia, Hx Ulcer Musculoskeletal Medical History: Reports Hx Arthritis Infectious Medical History: Denies: Hx Hepatitis Past Surgical History: Reports: Hx Cardiac Surgery - Pacemaker/defibrillator, Hx Open Heart Surgery - BYPASS 1989,STENT 3 YEARS AGO. Denies: Hx Pacemaker - Immunizations Hx Diphtheria, Pertussis, Tetanus Vaccination: Yes Review of Systems - Review of Systems Constitutional: denies: Chills, Fever EENT: No symptoms reported Cardiovascular: denies: Chest pain, Palpitations, Dizziness, Lightheaded Respiratory: Cough. denies: Short of breath, Wheezing Gastrointestinal: denies: Abdominal pain, Diarrhea, Nausea, Vomiting Genitourinary: No symptoms reported Musculoskeletal: No symptoms reported Skin: No symptoms reported Neurological/Psychological: No symptoms reported -: Yes All other systems reviewed and negative Physical Exam - Vital signs Vitals: Temp Pulse Resp BP Pulse Ox 97.8 F 64 18 149/95 H 97 09/21/20 11:09 09/21/20 11:09 09/21/20 11:09 09/21/20 11:09 09/21/20 11:09 Interpretation: Hypertensive - Notes Notes: PHYSICAL EXAMINATION: GENERAL: Well-appearing, well-nourished and in no acute distress. Noted reassuring vital signs with mild hypertension. Oxygen level is within normal limits. HEAD: Atraumatic, normocephalic. EYES: Pupils equal round and reactive to light, extraocular movements intact, sclera anicteric, conjunctiva are normal. ENT: nares patent, oropharynx clear without exudates. Moist mucous membranes. TMs are clear bilaterally NECK: Normal range of motion, supple without lymphadenopathy LUNGS: Breath sounds clear to auscultation bilaterally and equal. No wheezes rales or rhonchi. No tenderness to palpation over the chest wall HEART: Regular rate and rhythm without murmurs, no pitting edema ABDOMEN: Soft, nontender, normoactive bowel sounds. No guarding, no rebound. No masses appreciated. EXTREMITIES: Normal range of motion, no pitting or edema. No cyanosis. NEUROLOGICAL: No focal neurological deficits. Moves all extremities spontaneously and on command. PSYCH: Normal mood, normal affect. SKIN: Warm, Dry, normal turgor, no rashes or lesions noted. Course - Re-evaluation Re-evalutation: 09/21/20 Impression: COVID-19, cough. Patient does not have what appears to be a pneumonia on his chest x-ray. His blood work is also reassuring. He is not hypoxic. Plan will be to discharge home. Will send home with Tessalon Perles and albuterol inhaler. Encouraged to return if he gets worse and if he feels short of breath. Primary care follow-up. - Vital Signs Vital signs: Temp Pulse Resp BP Pulse Ox 97.8 F 64 22 H 158/92 H 94 09/21/20 11:09 09/21/20 11:09 09/21/20 14:14 09/21/20 14:14 09/21/20 14:14 - Laboratory Results Result Diagrams: 09/21/20 13:25 09/21/20 13:25 Laboratory Results Interpreted: 09/21/20 09/21/20 13:25 13:25 Plt Count 127 L Carbon Dioxide 31 H Glucose 122 H Critical Laboratory Results Reviewed: No Critical Results - Radiology Results Critical Radiology Results Reviewed: No Critical Results Discharge - Discharge Clinical Impression: COVID-19, Cough Condition: Stable Disposition: HOME, SELF-CARE Additional Instructions: Today you do not have pneumonia from Covid on your chest x-ray. Your blood work also looked really per good. You will be written for cough medicine to go home with as well as an albuterol inhaler. Please return if you start to feel worse. Monitor your symptoms. Follow-up with your primary care. Prescriptions: Benzonatate [Tessalon Perles 100 mg Capsule] 100 mg PO Q8HP PRN #15 capsule PRN Reason: Albuterol Sulfate [Albuterol Sulfate Hfa] 2 puff IH Q4H #1 [id number] Referrals: TARAS CONCEPCION MD [Primary Care Provider] - Follow up in 1 week
--- NOTE | 2020-09-21 12:01 | RADIOLOGY REPORT (SQ) ---
EXAM DESCRIPTION: CHEST SINGLE VIEW IMAGES COMPLETED DATE/TIME: 09/21/2020 11:34 am REASON FOR STUDY: Cough congestion stuffy nose nosebleed positive Co COMPARISON: AP view of the chest from 01/29/2019. EXAM PARAMETERS: NUMBER OF VIEWS: One view. TECHNIQUE: An AP view of the chest was obtained. RADIATION DOSE: NA LIMITATIONS: None. FINDINGS: LUNGS AND PLEURA: No consolidation, pleural effusion or pneumothorax. MEDIASTINUM AND HILAR STRUCTURES: No mediastinal or hilar contour abnormality. HEART AND VASCULAR STRUCTURES: The cardiac silhouette is enlarged. BONES: No acute findings. HARDWARE: Sternotomy wires, right shoulder arthroplasty, and left subclavian vein ICD. OTHER: No other finding. IMPRESSION: Cardiomegaly without a superimposed acute cardiopulmonary process. TECHNICAL DOCUMENTATION: JOB ID: [id number] 2010 [facility]- All Rights Reserved Reading location - IP/workstation name: [email or web address]
[2020-09-21 13:53] LABS: ABSOLUTE LYMPHOCYTES (AUTO) 1.8 10^3/uL (0.5-4.7); ABSOLUTE MONOCYTES (AUTO) 0.5 10^3/uL (0.1-1.4); ABSOLUTE NEUT (AUTO) 3.9 10^3/uL (1.7-8.2); BASOPHILS % (AUTO) 0.3 % (0-2); EOSINOPHILS % (AUTO) 0.5 % (0-6); HEMATOCRIT 42.3 % (37.9-51.0); HEMOGLOBIN 14.3 g/dL (13.5-17.0); LYMPHOCYTES % (AUTO) 28.9 % (13-45); MEAN CORPUSCULAR HEMOGLOBIN 28.9 pg (27.0-33.4); MEAN CORPUSCULAR HGB CONC 33.7 g/dL (32.0-36.0); MEAN CORPUSCULAR VOLUME 86 fl (80-97); MONOCYTES % (AUTO) 7.9 % (3-13); PLATELET COUNT 127 10^3/uL (150-450); RED BLOOD COUNT 4.93 10^6/uL (4.35-5.55); RED CELL DISTRIBUTION WIDTH 13.6 % (11.5-14.0); SEGMENTED NEUTROPHILS % (AUTO) 62.4 % (42-78); TOTAL CELLS COUNTED % (AUTO) 100 %; WHITE BLOOD COUNT 6.3 10^3/uL (4.0-10.5)
[2020-09-21 14:20] LABS: ALBUMIN 4.4 g/dL (3.5-5.0); ALKALINE PHOSPHATASE 66 U/L (38-126); ANION GAP 9 (5-19); ASPARTATE AMINO TRANSFERASE 28 U/L (17-59); BILIRUBIN,DIRECT 0.2 mg/dL (0.0-0.4); BILIRUBIN,TOTAL 1.1 mg/dL (0.2-1.3); BLOOD UREA NITROGEN 18 mg/dL (7-20); CALCIUM 9.5 mg/dL (8.4-10.2); CARBON DIOXIDE 31 mmol/L (22-30); CHLORIDE 98 mmol/L (98-107); GLUCOSE 122 mg/dL (75-110); POTASSIUM 4.5 mmol/L (3.6-5.0); TOTAL PROTEIN 7.5 g/dL (6.3-8.2)
[2020-09-21 14:50] VITALS: BP 158/92
== END 2020-09-21 14:57 | disposition home or self-care (01) ==
LOC: ER 10:48
DX: U07.1 COVID-19 (principal); R05 Cough; I10 Essential (primary) hypertension; I25.2 Old myocardial infarction; E11.9 Type 2 diabetes mellitus without complications; Z95.810 Presence of automatic (implantable) cardiac defibrillator; Z95.5 Presence of coronary angioplasty implant and graft; Z88.6 Allergy status to analgesic agent; Z88.5 Allergy status to narcotic agent; Z88.8 Allergy status to other drugs, medicaments and biological substances
CPT/HCPCS: 36415; 71045; 80053; 85025; 99284

== ENCOUNTER → 2020-10-21 | Outpatient (CLI) | payer MEDICARE, OTHER ==
[2020-10-21 11:55] LABS: ANION GAP 7 (5-19); BLOOD UREA NITROGEN 26 mg/dL (7-20); CALCIUM 9.3 mg/dL (8.4-10.2); CARBON DIOXIDE 32 mmol/L (22-30); CHLORIDE 100 mmol/L (98-107); GLUCOSE 143 mg/dL (75-110); POTASSIUM 4.8 mmol/L (3.6-5.0)
== END ==
LOC: OD 09:53
PROVIDERS: ATTEND Internal Medicine Cardiovascular Disease
DX: I50.22 Chronic systolic (congestive) heart failure (principal); I47.2 Ventricular tachycardia; Z79.899 Other long term (current) drug therapy
CPT/HCPCS: 36415; 80048; 83735; 83880